=== PATIENT | male | born 1960 | race Caucasian/White ===

== ENCOUNTER 2018-03-29 14:29 | Inpatient (IN) | payer MEDICAID ==
[~2018-03-29] VITALS: Ht 162.6 cm; Wt 68.8 kg
[2018-03-29] MEDS ORDERED: normal saline 1000ML IV soln IVB ONE (15:10)
[2018-03-29 15:12] LABS: BASOPHILS # (AUTO) 0.1 X10'3 (0-0.2); BASOPHILS % (AUTO) 0.6 % (0-1); EOSINOPHILS # (AUTO) 0.1 X10'3 (0-0.9); EOSINOPHILS % (AUTO) 0.7 % (0-6); HEMATOCRIT 44.1 % (42.0-52.0); HEMOGLOBIN 15.1 g/dl (14.0-17.9); LYMPHOCYTES # (AUTO) 1.5 X10'3 (1.1-4.8); LYMPHOCYTES % (AUTO) 10.1 % (21-51); MEAN CORPUSCULAR HEMOGLOBIN 31.4 PG (27.0-31.0); MEAN CORPUSCULAR HGB CONC 34.4 % (33.0-36.5); MEAN CORPUSCULAR VOLUME 91.4 FL (78-98); MEAN PLATELET VOLUME 7.8 FL (7.4-10.4); MONOCYTES % (AUTO) 6.7 % (2-12); NEUTROPHILS # (AUTO) 11.9 X10'3 (1.8-7.7); NEUTROPHILS % (AUTO) 81.9 % (42-75); PLATELET COUNT 171 X10'3 (140-440); RED BLOOD COUNT 4.82 X10'6 (4.70-6.10); RED CELL DISTRIBUTION WIDTH 14.9 % (11.5-14.5); WHITE BLOOD COUNT 14.5 X10'3 (4.5-11.0)
[2018-03-29 15:27] LABS: INR 1.2 INR; PARTIAL THROMBOPLASTIN TIME 25 SECONDS (22-32)
[2018-03-29 15:33] LABS: ALANINE AMINOTRANSFERASE 95 U/L (12-78); ALBUMIN 2.4 G/DL (3.4-5.0); ALBUMIN/GLOBULIN RATIO 0.6 (1.1-1.5); ALKALINE PHOSPHATASE 56 IU/L (46-116); ANION GAP 14 (8-16); ASPARTATE AMINO TRANSFERASE 184 U/L (10-37); BILIRUBIN,TOTAL 0.7 MG/DL (0.1-1.0); BLOOD UREA NITROGEN 52 MG/DL (7-18); BUN/CREATININE RATIO 28.6 (5.4-32.0); CALCIUM 7.8 MG/DL (8.5-10.1); CHLORIDE 118 MMOL/L (99-107); CREATININE 1.82 MG/DL (0.60-1.10); GLUCOSE 152 MG/DL (70-104); POTASSIUM 3.2 MMOL/L (3.5-5.1); SODIUM 153 MMOL/L (135-145); TOTAL CARBON DIOXIDE 21.4 MMOL/L (24-32); TOTAL PROTEIN 6.6 G/DL (6.4-8.2); eGFR 38 ML/MIN
[2018-03-29 15:46] LABS: CLARITY,URINE SLIGHTLY CLOUDY (Clear); COLOR,URINE YELLOW (Yellow); GLUCOSE, URINE NEGATIVE (Neg); KETONES,URINE NEGATIVE (Neg); LEUKOCYTE ESTERASE ,URINE NEGATIVE (Neg); NITRITES, URINE NEGATIVE (Neg); OCCULT BLOOD,URINE LARGE (Neg); PH,URINE 5.5 (4.8-8.0); PROTEIN,URINE 100 mg/dl (Neg)
[2018-03-29 15:51] LABS: UA COLLECTION TYPE FOLEY CATH
[2018-03-29 15:52] LABS: WBC,URINE 30-50 /HPF (0-4)
[2018-03-29 15:53] LABS: BACTERIA,URINE 2+ /HPF (Neg); RBC,URINE TNTC /HPF (0-2); SQUAMOUS EPITHELIAL CELL,UR FEW /LPF (FEW)
[2018-03-29 15:55] LABS: CAL OXALATE CRYSTALS 1+ /HPF (NEGATIVE)
[2018-03-29 15:57] LABS: URINE AMPHETAMINE SCREEN NEGATIVE (Neg); URINE BARBITUATE SCREEN NEGATIVE (Neg); URINE BENZODIAZEPINES SCREEN NEGATIVE (Neg); URINE CANNABINOID SCREEN NEGATIVE (Neg); URINE COCAINE SCREEN NEGATIVE (Neg); URINE METHADONE SCREEN NEGATIVE (Neg); URINE OPIATE SCREEN NEGATIVE (Neg); URINE PHENCYCLIDINE SCREEN NEGATIVE (Neg)
[2018-03-29 16:03] LABS: ETHANOL < 0.010 GM/DL (0.0-0.010)
[2018-03-29] MEDS ORDERED: CefTRIAXone 2gm/D5W 50ml 50 ML IV ONE (16:05)
[2018-03-29 16:09] LABS: CREATINE KINASE 6422 U/L (39-308)
[2018-03-29 16:26] LABS: MYOGLOBIN 10655 ng/ml (16-96)
[2018-03-29] MEDS: potassium 10mEq/100ml NS w/LIDOcaine (10mg/bag) IV SCH ×2 (16:32→17:47)
[2018-03-29] MEDS ORDERED: potassium Cl 40MEQ/NS 500ml 500 ML IV PRN ×2 (16:55)
[2018-03-29] MEDS ORDERED: magnesium hydroxide 30ml (MOM) UD suspension PO PRN (16:55)
[2018-03-29] MEDS ORDERED: magnesium 1gm/100ml D5W IVPB 50 ML IV PRN (16:55)
[2018-03-29] MEDS ORDERED: ipratropium/albuterol 3ml nebule NEB PRN (16:55)
[2018-03-29] MEDS ORDERED: ondansetron/PF 4mg/2ml inj IV PRN (16:55)
[2018-03-29] MEDS ORDERED: magnesium Cl slow-release 64mg tablet PO PRN (16:55)
[2018-03-29] MEDS ORDERED: potassium Cl 20 mEq SR tablet PO PRN (16:55)
[2018-03-29] MEDS ORDERED: haloperidol lactate 5mg/ml inj IM PRN (16:55)
[2018-03-29] MEDS ORDERED: mag hydrox/Alum hydrox/simeth 30ml oral suspension PO PRN (16:55)
[2018-03-29] MEDS ORDERED: magnesium 4gm in 100ml NS 100 ML IV PRN (16:55)
[2018-03-29] MEDS ORDERED: thiamine inj. 100 MG in normal saline 100ml IV soln 100 ML IV ONE (16:55)
[2018-03-29] MEDS ORDERED: NO HOME MEDS (17:36)
[2018-03-29] MEDS: normal saline 1000ml 1,000 ML IV SCH ×4 (18:55→22:55)
[2018-03-29 19:20] VITALS: BP 146/95
[2018-03-29 19:29] LABS: ALANINE AMINOTRANSFERASE 95 U/L (12-78); ALBUMIN 2.4 G/DL (3.4-5.0); ALBUMIN/GLOBULIN RATIO 0.6 (1.1-1.5); ALKALINE PHOSPHATASE 50 IU/L (46-116); ANION GAP 12 (8-16); ASPARTATE AMINO TRANSFERASE 223 U/L (10-37); BILIRUBIN,TOTAL 0.4 MG/DL (0.1-1.0); BLOOD UREA NITROGEN 49 MG/DL (7-18); BUN/CREATININE RATIO 27.8 (5.4-32.0); CALCIUM 8.3 MG/DL (8.5-10.1); CHLORIDE 119 MMOL/L (99-107); CREATININE 1.76 MG/DL (0.60-1.10); GLUCOSE 123 MG/DL (70-104); POTASSIUM 4.3 MMOL/L (3.5-5.1); SODIUM 154 MMOL/L (135-145); TOTAL CARBON DIOXIDE 23.1 MMOL/L (24-32); TOTAL PROTEIN 6.4 G/DL (6.4-8.2); eGFR 40 ML/MIN
[2018-03-29 19:54] LABS: MYOGLOBIN 7182 ng/ml (16-96)
[2018-03-29 20:12] LABS: CREATINE KINASE 7854 U/L (39-308)
[2018-03-29 23:55] VITALS: BP 141/94
[2018-03-30] MEDS: heparin, porcine 5000 units/ml vial SQ SCH ×4 (00:53→23:21)
[2018-03-30 02:00] LABS: TROPONIN I 0.07 NG/ML (0.0-0.05)
[2018-03-30 02:02] LABS: CREATINE KINASE 6278 U/L (39-308)
[2018-03-30 03:00] VITALS: BP 141/87
[2018-03-30] MEDS: normal saline 1000ml 1,000 ML IV SCH (03:14)
[2018-03-30 06:00] VITALS: BP 133/83
[2018-03-30 06:56] LABS: BASOPHILS % (AUTO) 0.4 % (0-1); EOSINOPHILS # (AUTO) 0.1 X10'3 (0-0.9); EOSINOPHILS % (AUTO) 1.2 % (0-6); HEMOGLOBIN 12.5 g/dl (14.0-17.9); LYMPHOCYTES # (AUTO) 1.7 X10'3 (1.1-4.8); LYMPHOCYTES % (AUTO) 13.5 % (21-51); MEAN CORPUSCULAR HEMOGLOBIN 32.1 PG (27.0-31.0); MEAN CORPUSCULAR HGB CONC 34.8 % (33.0-36.5); MEAN CORPUSCULAR VOLUME 92.3 FL (78-98); MEAN PLATELET VOLUME 7.8 FL (7.4-10.4); MONOCYTES # (AUTO) 0.8 X10'3 (0-0.9); MONOCYTES % (AUTO) 6.5 % (2-12); NEUTROPHILS # (AUTO) 9.7 X10'3 (1.8-7.7); NEUTROPHILS % (AUTO) 78.4 % (42-75); PLATELET COUNT 131 X10'3 (140-440); RED CELL DISTRIBUTION WIDTH 14.4 % (11.5-14.5); WHITE BLOOD COUNT 12.4 X10'3 (4.5-11.0)
[2018-03-30 07:33] LABS: ALANINE AMINOTRANSFERASE 82 U/L (12-78); ALBUMIN/GLOBULIN RATIO 0.6 (1.1-1.5); ALKALINE PHOSPHATASE 44 IU/L (46-116); AMYLASE 76 U/L (25-115); ANION GAP 10 (8-16); ASPARTATE AMINO TRANSFERASE 179 U/L (10-37); BILIRUBIN,TOTAL 0.4 MG/DL (0.1-1.0); BLOOD UREA NITROGEN 38 MG/DL (7-18); BUN/CREATININE RATIO 28.6 (5.4-32.0); CALCIUM 7.4 MG/DL (8.5-10.1); CHLORIDE 124 MMOL/L (99-107); CHOL/HDL RATIO 4.5 (0.00-4.99); CHOLESTEROL 104 MG/DL (0-200); CREATININE 1.33 MG/DL (0.60-1.10); GLUCOSE 94 MG/DL (70-104); HDL CHOLESTEROL 23 MG/DL (35-60); LDL CHOLESTEROL 71 MG/DL (50-100); LIPASE 460 U/L (73-393); MAGNESIUM 2.2 MG/DL (1.5-2.4); PHOSPHORUS 4.2 MG/DL (2.3-4.5); POTASSIUM 4.3 MMOL/L (3.5-5.1); TOTAL CARBON DIOXIDE 22.4 MMOL/L (24-32); TOTAL PROTEIN 5.6 G/DL (6.4-8.2); TRIGLYCERIDES 83 MG/DL (20-135); eGFR 55 ML/MIN
[2018-03-30 07:34] LABS: CREATINE KINASE 4522 U/L (39-308); SODIUM 156 MMOL/L (135-145)
[2018-03-30] MEDS: K and/or MAG REPLACEMENT MC SCH (08:00)
[2018-03-30] MEDS: CefTRIAXone/D5W-Rocephin 1gm 50 ML IV SCH (10:10)
[2018-03-30] MEDS: dextrose 5%-water 1,000 ML IV SCH ×3 (10:12→21:02)
[2018-03-30] MEDS: nicotine 21mg patch - 24 hr TD SCH (10:12)
[2018-03-30 11:00] VITALS: BP 134/82
[2018-03-30] MEDS: folic acid inj. 2 MG, thiamine inj. 100 MG, MVI, adult No.4 with vit. K 10 ML in dextro... IV SCH ×4 (11:39)
[2018-03-30 13:11] LABS: CREATINE KINASE 4720 U/L (39-308)
[2018-03-30 14:49] LABS: ALANINE AMINOTRANSFERASE 87 U/L (12-78); ALBUMIN/GLOBULIN RATIO 0.5 (1.1-1.5); ALKALINE PHOSPHATASE 50 IU/L (46-116); ANION GAP 12 (8-16); ASPARTATE AMINO TRANSFERASE 185 U/L (10-37); BILIRUBIN,TOTAL 0.4 MG/DL (0.1-1.0); BLOOD UREA NITROGEN 34 MG/DL (7-18); BUN/CREATININE RATIO 27.2 (5.4-32.0); CALCIUM 7.8 MG/DL (8.5-10.1); CHLORIDE 119 MMOL/L (99-107); CREATININE 1.25 MG/DL (0.60-1.10); GLUCOSE 178 MG/DL (70-104); POTASSIUM 3.1 MMOL/L (3.5-5.1); SODIUM 151 MMOL/L (135-145); TOTAL CARBON DIOXIDE 19.9 MMOL/L (24-32); TOTAL PROTEIN 5.8 G/DL (6.4-8.2); eGFR 59 ML/MIN
[2018-03-30 15:00] VITALS: BP 133/93
[2018-03-30] MEDS: potassium Cl 20 mEq SR tablet PO PRN ×2 (15:34→21:00)
[2018-03-30 18:52] LABS: CREATINE KINASE 4288 U/L (39-308)
[2018-03-30] MEDS: nystatin 15 GM powder TP SCH (19:52)
[2018-03-30] MEDS: lactobacillus rhamnosus 10,000 MMU CELLS/CAPSULE PO SCH (19:52)
[2018-03-30] MEDS: LORazepam 2 mg/ml vial IV PRN (21:18)
[2018-03-30 23:28] VITALS: BP 139/80
[2018-03-31 01:39] LABS: CREATINE KINASE 3361 U/L (39-308)
[2018-03-31 02:30] VITALS: BP 137/90
[2018-03-31] MEDS: LORazepam 2 mg/ml vial IV PRN ×4 (03:01→15:53)
[2018-03-31 06:00] VITALS: BP 119/84
[2018-03-31 06:26] LABS: BASOPHILS % (AUTO) 0.3 % (0-1); EOSINOPHILS # (AUTO) 0.1 X10'3 (0-0.9); EOSINOPHILS % (AUTO) 1.8 % (0-6); HEMATOCRIT 31.3 % (42.0-52.0); HEMOGLOBIN 10.6 g/dl (14.0-17.9); LYMPHOCYTES # (AUTO) 1.4 X10'3 (1.1-4.8); LYMPHOCYTES % (AUTO) 20.6 % (21-51); MEAN CORPUSCULAR HEMOGLOBIN 31.2 PG (27.0-31.0); MEAN CORPUSCULAR HGB CONC 33.9 % (33.0-36.5); MEAN PLATELET VOLUME 7.9 FL (7.4-10.4); MONOCYTES # (AUTO) 0.4 X10'3 (0-0.9); MONOCYTES % (AUTO) 6.5 % (2-12); NEUTROPHILS # (AUTO) 4.7 X10'3 (1.8-7.7); NEUTROPHILS % (AUTO) 70.8 % (42-75); PLATELET COUNT 118 X10'3 (140-440); RED BLOOD COUNT 3.41 X10'6 (4.70-6.10); RED CELL DISTRIBUTION WIDTH 14.7 % (11.5-14.5); WHITE BLOOD COUNT 6.7 X10'3 (4.5-11.0)
[2018-03-31 06:40] LABS: ALANINE AMINOTRANSFERASE 85 U/L (12-78); ALBUMIN 1.8 G/DL (3.4-5.0); ALBUMIN/GLOBULIN RATIO 0.5 (1.1-1.5); ALKALINE PHOSPHATASE 47 IU/L (46-116); ANION GAP 7 (8-16); ASPARTATE AMINO TRANSFERASE 150 U/L (10-37); BILIRUBIN,TOTAL 0.4 MG/DL (0.1-1.0); BLOOD UREA NITROGEN 23 MG/DL (7-18); BUN/CREATININE RATIO 21.9 (5.4-32.0); CALCIUM 7.9 MG/DL (8.5-10.1); CHLORIDE 115 MMOL/L (99-107); CREATININE 1.05 MG/DL (0.60-1.10); GLUCOSE 150 MG/DL (70-104); POTASSIUM 3.7 MMOL/L (3.5-5.1); SODIUM 146 MMOL/L (135-145); TOTAL CARBON DIOXIDE 24.3 MMOL/L (24-32); TOTAL PROTEIN 5.5 G/DL (6.4-8.2); eGFR 72 ML/MIN
[2018-03-31 06:53] LABS: AMYLASE 35 U/L (25-115); LIPASE 279 U/L (73-393); MAGNESIUM 1.8 MG/DL (1.5-2.4); PHOSPHORUS 2.5 MG/DL (2.3-4.5)
[2018-03-31 07:00] LABS: CREATINE KINASE 3194 U/L (39-308)
[2018-03-31] MEDS: dextrose 5%-water 1,000 ML IV SCH ×2 (07:10→14:11)
[2018-03-31] MEDS: heparin, porcine 5000 units/ml vial SQ SCH ×2 (07:24→15:09)
[2018-03-31] MEDS: CefTRIAXone/D5W-Rocephin 1gm 50 ML IV SCH (07:24)
[2018-03-31] MEDS: nicotine 21mg patch - 24 hr TD SCH (07:25)
[2018-03-31] MEDS: lactobacillus rhamnosus 10,000 MMU CELLS/CAPSULE PO SCH ×2 (07:30→20:40)
[2018-03-31] MEDS: K and/or MAG REPLACEMENT MC SCH (08:00)
[2018-03-31] MEDS: folic acid inj. 2 MG, thiamine inj. 100 MG, MVI, adult No.4 with vit. K 10 ML in dextro... IV SCH ×4 (09:06)
[2018-03-31] MEDS: nystatin 15 GM powder TP SCH ×2 (09:08→20:40)
[2018-03-31 11:00] VITALS: BP 112/72
[2018-03-31 13:05] LABS: CREATINE KINASE 2919 U/L (39-308)
[2018-03-31 17:52] VITALS: BP 126/86
[2018-03-31 18:50] LABS: CREATINE KINASE 2512 U/L (39-308)
[2018-03-31 19:00] VITALS: BP 105/72
[2018-03-31] MEDS: LORazepam 1 MG tablet PO PRN ×2 (19:34→20:40)
[2018-03-31 23:00] VITALS: BP 144/89
[2018-04-01] MEDS: heparin, porcine 5000 units/ml vial SQ SCH ×2 (00:31→07:01)
[2018-04-01] MEDS: haloperidol 5mg tablet PO PRN (02:30)
[2018-04-01] MEDS: dextrose 5%-water 1,000 ML IV SCH ×3 (02:31→20:02)
[2018-04-01 03:00] VITALS: BP 126/78
[2018-04-01 03:04] LABS: CREATINE KINASE 2095 U/L (39-308)
[2018-04-01 06:00] VITALS: BP 147/90
[2018-04-01] MEDS: CefTRIAXone/D5W-Rocephin 1gm 50 ML IV SCH (07:01)
[2018-04-01] MEDS: nicotine 21mg patch - 24 hr TD SCH (07:02)
[2018-04-01] MEDS: nystatin 15 GM powder TP SCH ×2 (07:08→20:02)
[2018-04-01 07:16] LABS: ALANINE AMINOTRANSFERASE 94 U/L (12-78); ALBUMIN 1.8 G/DL (3.4-5.0); ALBUMIN/GLOBULIN RATIO 0.5 (1.1-1.5); ALKALINE PHOSPHATASE 60 IU/L (46-116); AMYLASE 29 U/L (25-115); ANION GAP 8 (8-16); ASPARTATE AMINO TRANSFERASE 138 U/L (10-37); BILIRUBIN,TOTAL 0.5 MG/DL (0.1-1.0); BLOOD UREA NITROGEN 12 MG/DL (7-18); BUN/CREATININE RATIO 13.2 (5.4-32.0); CALCIUM 7.7 MG/DL (8.5-10.1); CHLORIDE 109 MMOL/L (99-107); CREATININE 0.91 MG/DL (0.60-1.10); GLUCOSE 130 MG/DL (70-104); LIPASE 223 U/L (73-393); MAGNESIUM 1.6 MG/DL (1.5-2.4); PHOSPHORUS 2.8 MG/DL (2.3-4.5); POTASSIUM 3.4 MMOL/L (3.5-5.1); SODIUM 141 MMOL/L (135-145); TOTAL CARBON DIOXIDE 23.7 MMOL/L (24-32); TOTAL PROTEIN 5.4 G/DL (6.4-8.2); eGFR 85 ML/MIN
[2018-04-01 07:24] LABS: CREATINE KINASE 1654 U/L (39-308)
[2018-04-01] MEDS: K and/or MAG REPLACEMENT MC SCH (08:00)
[2018-04-01] MEDS: LORazepam 1 MG tablet PO PRN (08:02)
[2018-04-01] MEDS: lactobacillus rhamnosus 10,000 MMU CELLS/CAPSULE PO SCH ×2 (08:02→20:02)
[2018-04-01] MEDS: folic acid inj. 2 MG, thiamine inj. 100 MG, MVI, adult No.4 with vit. K 10 ML in dextro... IV SCH ×4 (08:02)
[2018-04-01] MEDS: potassium Cl 20 mEq SR tablet PO PRN ×3 (08:02→23:27)
[2018-04-01 08:15] LABS: BASOPHILS % (AUTO) 0.3 % (0-1); EOSINOPHILS # (AUTO) 0.1 X10'3 (0-0.9); EOSINOPHILS % (AUTO) 1.5 % (0-6); HEMATOCRIT 30.7 % (42.0-52.0); HEMOGLOBIN 10.7 g/dl (14.0-17.9); LYMPHOCYTES # (AUTO) 1.2 X10'3 (1.1-4.8); LYMPHOCYTES % (AUTO) 19.2 % (21-51); MEAN CORPUSCULAR HEMOGLOBIN 31.7 PG (27.0-31.0); MEAN CORPUSCULAR HGB CONC 34.8 % (33.0-36.5); MEAN CORPUSCULAR VOLUME 91.1 FL (78-98); MEAN PLATELET VOLUME 8.2 FL (7.4-10.4); MONOCYTES # (AUTO) 0.3 X10'3 (0-0.9); MONOCYTES % (AUTO) 5.2 % (2-12); NEUTROPHILS # (AUTO) 4.8 X10'3 (1.8-7.7); NEUTROPHILS % (AUTO) 73.8 % (42-75); PLATELET COUNT 120 X10'3 (140-440); RED BLOOD COUNT 3.37 X10'6 (4.70-6.10); RED CELL DISTRIBUTION WIDTH 14.6 % (11.5-14.5); WHITE BLOOD COUNT 6.4 X10'3 (4.5-11.0)
[2018-04-01] MEDS ORDERED: LORazepam 2 mg/ml vial IV PRN (10:45)
[2018-04-01 11:00] VITALS: BP 131/78
[2018-04-01 13:40] LABS: CREATINE KINASE 1413 U/L (39-308)
[2018-04-01 15:00] VITALS: BP 125/75
[2018-04-01] MEDS ORDERED: potassium Cl 40MEQ/NS 500ml 500 ML IV PRN ×2 (18:35)
[2018-04-01 19:00] VITALS: BP 120/73
[2018-04-01 23:00] VITALS: BP 136/87
[2018-04-02] MEDS: HYDROcodone/acetaminophen 5mg/325mg tablet PO PRN (01:21)
[2018-04-02 03:00] VITALS: BP 138/56
[2018-04-02 06:30] VITALS: BP 140/87
[2018-04-02 06:41] LABS: ALANINE AMINOTRANSFERASE 112 U/L (12-78); ALBUMIN/GLOBULIN RATIO 0.5 (1.1-1.5); ALKALINE PHOSPHATASE 79 IU/L (46-116); AMYLASE 37 U/L (25-115); ANION GAP 10 (8-16); ASPARTATE AMINO TRANSFERASE 127 U/L (10-37); BILIRUBIN,TOTAL 0.6 MG/DL (0.1-1.0); BLOOD UREA NITROGEN 7 MG/DL (7-18); BUN/CREATININE RATIO 8.5 (5.4-32.0); CALCIUM 8.2 MG/DL (8.5-10.1); CHLORIDE 107 MMOL/L (99-107); CREATINE KINASE 962 U/L (39-308); CREATININE 0.82 MG/DL (0.60-1.10); GLUCOSE 121 MG/DL (70-104); LIPASE 276 U/L (73-393); MAGNESIUM 1.5 MG/DL (1.5-2.4); PHOSPHORUS 2.2 MG/DL (2.3-4.5); POTASSIUM 3.5 MMOL/L (3.5-5.1); SODIUM 141 MMOL/L (135-145); TOTAL CARBON DIOXIDE 23.6 MMOL/L (24-32); TOTAL PROTEIN 6.1 G/DL (6.4-8.2); eGFR > 90 ML/MIN
[2018-04-02 07:23] LABS: BASOPHILS % (AUTO) 0.6 % (0-1); EOSINOPHILS % (AUTO) 0.6 % (0-6); HEMATOCRIT 36.3 % (42.0-52.0); HEMOGLOBIN 12.4 g/dl (14.0-17.9); LYMPHOCYTES # (AUTO) 1.1 X10'3 (1.1-4.8); LYMPHOCYTES % (AUTO) 13.2 % (21-51); MEAN CORPUSCULAR HEMOGLOBIN 31.6 PG (27.0-31.0); MEAN CORPUSCULAR HGB CONC 34.3 % (33.0-36.5); MEAN CORPUSCULAR VOLUME 92.2 FL (78-98); MEAN PLATELET VOLUME 8.2 FL (7.4-10.4); MONOCYTES # (AUTO) 0.3 X10'3 (0-0.9); NEUTROPHILS % (AUTO) 81.6 % (42-75); PLATELET COUNT 143 X10'3 (140-440); RED BLOOD COUNT 3.94 X10'6 (4.70-6.10); RED CELL DISTRIBUTION WIDTH 13.9 % (11.5-14.5); WHITE BLOOD COUNT 8.5 X10'3 (4.5-11.0)
[2018-04-02] MEDS: K and/or MAG REPLACEMENT MC SCH (08:00)
[2018-04-02] MEDS: lactobacillus rhamnosus 10,000 MMU CELLS/CAPSULE PO SCH ×2 (08:00→19:33)
[2018-04-02] MEDS: nicotine 21mg patch - 24 hr TD SCH (08:01)
[2018-04-02] MEDS: enoxaparin 40mg/0.4ml syringe SUBCUT SCH (08:02)
[2018-04-02] MEDS: nystatin 15 GM powder TP SCH ×2 (08:04→19:33)
[2018-04-02] MEDS: folic acid inj. 2 MG, thiamine inj. 100 MG, MVI, adult No.4 with vit. K 10 ML in dextro... IV SCH ×4 (08:06)
[2018-04-02] MEDS: LORazepam 1 MG tablet PO PRN (10:06)
[2018-04-02] MEDS: dextrose 5%-water 1,000 ML IV SCH ×2 (10:06→19:10)
[2018-04-02 11:00] VITALS: BP 105/69
[2018-04-02 15:00] VITALS: BP 124/82
[2018-04-02] MEDS ORDERED: LORazepam 1 MG tablet PO PRN (16:55)
[2018-04-02 19:00] VITALS: BP 121/76
[2018-04-02 23:30] VITALS: BP 118/79
[2018-04-03] MEDS: dextrose 5%-water 1,000 ML IV SCH ×2 (02:18→16:32)
[2018-04-03 06:22] LABS: ALANINE AMINOTRANSFERASE 96 U/L (12-78); ALBUMIN/GLOBULIN RATIO 0.5 (1.1-1.5); ALKALINE PHOSPHATASE 69 IU/L (46-116); AMYLASE 35 U/L (25-115); ANION GAP 10 (8-16); ASPARTATE AMINO TRANSFERASE 85 U/L (10-37); BILIRUBIN,TOTAL 0.7 MG/DL (0.1-1.0); BLOOD UREA NITROGEN 8 MG/DL (7-18); BUN/CREATININE RATIO 11.1 (5.4-32.0); CALCIUM 7.9 MG/DL (8.5-10.1); CHLORIDE 105 MMOL/L (99-107); CREATININE 0.72 MG/DL (0.60-1.10); GLUCOSE 120 MG/DL (70-104); LIPASE 250 U/L (73-393); MAGNESIUM 1.4 MG/DL (1.5-2.4); PHOSPHORUS 2.7 MG/DL (2.3-4.5); SODIUM 141 MMOL/L (135-145); TOTAL CARBON DIOXIDE 26.2 MMOL/L (24-32); TOTAL PROTEIN 5.8 G/DL (6.4-8.2); eGFR > 90 ML/MIN
[2018-04-03 06:24] LABS: POTASSIUM 2.9 MMOL/L (3.5-5.1)
[2018-04-03 06:29] LABS: BASOPHILS % (AUTO) 0.4 % (0-1); EOSINOPHILS # (AUTO) 0.1 X10'3 (0-0.9); EOSINOPHILS % (AUTO) 0.6 % (0-6); HEMATOCRIT 34.9 % (42.0-52.0); HEMOGLOBIN 12.1 g/dl (14.0-17.9); LYMPHOCYTES # (AUTO) 1.3 X10'3 (1.1-4.8); LYMPHOCYTES % (AUTO) 11.2 % (21-51); MEAN CORPUSCULAR HEMOGLOBIN 31.5 PG (27.0-31.0); MEAN CORPUSCULAR HGB CONC 34.6 % (33.0-36.5); MEAN CORPUSCULAR VOLUME 91.1 FL (78-98); MEAN PLATELET VOLUME 9.1 FL (7.4-10.4); MONOCYTES # (AUTO) 0.6 X10'3 (0-0.9); MONOCYTES % (AUTO) 5.1 % (2-12); NEUTROPHILS # (AUTO) 9.3 X10'3 (1.8-7.7); NEUTROPHILS % (AUTO) 82.7 % (42-75); PLATELET COUNT 157 X10'3 (140-440); RED BLOOD COUNT 3.83 X10'6 (4.70-6.10); RED CELL DISTRIBUTION WIDTH 14.4 % (11.5-14.5); WHITE BLOOD COUNT 11.3 X10'3 (4.5-11.0)
[2018-04-03 07:25] VITALS: BP 136/84
[2018-04-03] MEDS: K and/or MAG REPLACEMENT MC SCH (08:00)
[2018-04-03] MEDS: potassium Cl 20 mEq SR tablet PO PRN ×3 (08:34→17:36)
[2018-04-03] MEDS: lactobacillus rhamnosus 10,000 MMU CELLS/CAPSULE PO SCH ×2 (08:34→20:31)
[2018-04-03] MEDS: folic acid inj. 2 MG, thiamine inj. 100 MG, MVI, adult No.4 with vit. K 10 ML in dextro... IV SCH ×4 (08:34)
[2018-04-03] MEDS: enoxaparin 40mg/0.4ml syringe SUBCUT SCH (08:35)
[2018-04-03] MEDS: nystatin 15 GM powder TP SCH ×2 (08:36→20:36)
[2018-04-03] MEDS: nicotine 21mg patch - 24 hr TD SCH (08:36)
[2018-04-03] MEDS ORDERED: LIDOcaine 2% 10ml TOPICAL JELLY (Urojet) MM ONE (10:55)
[2018-04-03 11:30] VITALS: BP 126/74
[2018-04-03] MEDS ORDERED: magnesium 4gm in 100ml NS 100 ML IV PRN (12:30)
[2018-04-03] MEDS: magnesium Cl slow-release 64mg tablet PO PRN (17:04)
[2018-04-03 20:00] VITALS: BP 114/82
[2018-04-04] VITALS: BP 119/67
[2018-04-04] MEDS: dextrose 5%-water 1,000 ML IV SCH ×2 (03:03→20:28)
[2018-04-04] MEDS: magnesium Cl slow-release 64mg tablet PO PRN (04:45)
[2018-04-04 05:46] LABS: BASOPHILS % (AUTO) 0.5 % (0-1); EOSINOPHILS % (AUTO) 0.4 % (0-6); HEMATOCRIT 31.3 % (42.0-52.0); HEMOGLOBIN 10.6 g/dl (14.0-17.9); LYMPHOCYTES # (AUTO) 1.1 X10'3 (1.1-4.8); LYMPHOCYTES % (AUTO) 11.3 % (21-51); MEAN CORPUSCULAR HEMOGLOBIN 31.2 PG (27.0-31.0); MEAN CORPUSCULAR HGB CONC 33.9 % (33.0-36.5); MEAN CORPUSCULAR VOLUME 91.9 FL (78-98); MEAN PLATELET VOLUME 8.5 FL (7.4-10.4); MONOCYTES # (AUTO) 0.5 X10'3 (0-0.9); MONOCYTES % (AUTO) 5.6 % (2-12); NEUTROPHILS # (AUTO) 7.9 X10'3 (1.8-7.7); NEUTROPHILS % (AUTO) 82.2 % (42-75); PLATELET COUNT 159 X10'3 (140-440); RED BLOOD COUNT 3.41 X10'6 (4.70-6.10); RED CELL DISTRIBUTION WIDTH 15.1 % (11.5-14.5); WHITE BLOOD COUNT 9.6 X10'3 (4.5-11.0)
[2018-04-04 05:59] LABS: ALANINE AMINOTRANSFERASE 80 U/L (12-78); ALBUMIN 1.9 G/DL (3.4-5.0); ALBUMIN/GLOBULIN RATIO 0.5 (1.1-1.5); ALKALINE PHOSPHATASE 61 IU/L (46-116); ANION GAP 8 (8-16); ASPARTATE AMINO TRANSFERASE 53 U/L (10-37); BILIRUBIN,TOTAL 0.8 MG/DL (0.1-1.0); BLOOD UREA NITROGEN 8 MG/DL (7-18); BUN/CREATININE RATIO 10.8 (5.4-32.0); CHLORIDE 105 MMOL/L (99-107); CREATINE KINASE 236 U/L (39-308); CREATININE 0.74 MG/DL (0.60-1.10); GLUCOSE 115 MG/DL (70-104); MAGNESIUM 1.3 MG/DL (1.5-2.4); POTASSIUM 3.4 MMOL/L (3.5-5.1); SODIUM 138 MMOL/L (135-145); TOTAL CARBON DIOXIDE 24.6 MMOL/L (24-32); TOTAL PROTEIN 5.7 G/DL (6.4-8.2); eGFR > 90 ML/MIN
[2018-04-04 07:45] VITALS: BP 139/88
[2018-04-04] MEDS ORDERED: folic acid 1mg tablet PO SCH (08:00)
[2018-04-04] MEDS: K and/or MAG REPLACEMENT MC SCH (08:00)
[2018-04-04] MEDS: multivitamins, therapeutics tablet PO SCH (09:20)
[2018-04-04] MEDS: lactobacillus rhamnosus 10,000 MMU CELLS/CAPSULE PO SCH ×2 (09:20→19:52)
[2018-04-04] MEDS: folic acid 1mg tablet PO SCH (09:20)
[2018-04-04] MEDS: thiamine 100mg tablet PO SCH (09:21)
[2018-04-04] MEDS: enoxaparin 40mg/0.4ml syringe SUBCUT SCH (09:21)
[2018-04-04] MEDS: potassium Cl 20 mEq SR tablet PO PRN ×2 (09:23→13:53)
[2018-04-04] MEDS: nicotine 21mg patch - 24 hr TD SCH (09:24)
[2018-04-04] MEDS: nystatin 15 GM powder TP SCH ×2 (09:34→19:53)
[2018-04-04] MEDS: tamsulosin 0.4mg capsule PO SCH ×2 (10:39→20:29)
[2018-04-04 12:06] VITALS: BP 104/70
[2018-04-04] MEDS ORDERED: LIDOcaine 2% 10ml TOPICAL JELLY (Urojet) MM ONE (12:40)
[2018-04-04] MEDS: magnesium 1gm/100ml D5W IVPB 100 ML IV PRN ×2 (13:04→15:45)
[2018-04-04] MEDS ORDERED: potassium Cl 20 mEq SR tablet PO STA (19:45)
[2018-04-04] MEDS: acetaminophen 325mg tablet PO PRN (19:53)
[2018-04-04 20:00] VITALS: BP 110/74
[2018-04-05] VITALS: BP 125/82
[2018-04-05] MEDS: HYDROcodone/acetaminophen 5mg/325mg tablet PO PRN (01:19)
[2018-04-05 06:11] LABS: MAGNESIUM 2.1 MG/DL (1.5-2.4); POTASSIUM 3.5 MMOL/L (3.5-5.1)
[2018-04-05 06:53] VITALS: BP 127/89
[2018-04-05] MEDS: K and/or MAG REPLACEMENT MC SCH (08:50)
[2018-04-05] MEDS: folic acid 1mg tablet PO SCH (09:02)
[2018-04-05] MEDS: thiamine 100mg tablet PO SCH (09:02)
[2018-04-05] MEDS: lactobacillus rhamnosus 10,000 MMU CELLS/CAPSULE PO SCH ×2 (09:02→19:31)
[2018-04-05] MEDS: multivitamins, therapeutics tablet PO SCH (09:02)
[2018-04-05] MEDS: nystatin 15 GM powder TP SCH ×2 (09:03→22:17)
[2018-04-05] MEDS: nicotine 21mg patch - 24 hr TD SCH (09:03)
[2018-04-05] MEDS: enoxaparin 40mg/0.4ml syringe SUBCUT SCH (09:03)
[2018-04-05 12:26] VITALS: BP 106/74
[2018-04-05] MEDS: dextrose 5%-water 1,000 ML IV SCH (13:46)
[2018-04-05 19:00] VITALS: BP 133/86
[2018-04-05] MEDS: LORazepam 2 mg/ml vial IV PRN (19:31)
[2018-04-05] MEDS: tamsulosin 0.4mg capsule PO SCH (22:17)
[2018-04-06 02:30] VITALS: BP 128/77
[2018-04-06] MEDS: LORazepam 2 mg/ml vial IV PRN (05:34)
[2018-04-06] MEDS: dextrose 5%-water 1,000 ML IV SCH ×2 (05:42→22:00)
[2018-04-06 07:33] VITALS: BP 123/72
[2018-04-06] MEDS: nicotine 21mg patch - 24 hr TD SCH (07:53)
[2018-04-06] MEDS: enoxaparin 40mg/0.4ml syringe SUBCUT SCH (07:53)
[2018-04-06] MEDS: thiamine 100mg tablet PO SCH (08:00)
[2018-04-06] MEDS: lactobacillus rhamnosus 10,000 MMU CELLS/CAPSULE PO SCH ×2 (08:00→19:38)
[2018-04-06] MEDS: K and/or MAG REPLACEMENT MC SCH (08:00)
[2018-04-06] MEDS: folic acid 1mg tablet PO SCH (08:00)
[2018-04-06] MEDS: multivitamins, therapeutics tablet PO SCH (08:00)
[2018-04-06] MEDS: nystatin 15 GM powder TP SCH ×2 (08:05→19:39)
[2018-04-06 08:34] LABS: CLARITY,URINE CLOUDY (Clear); COLOR,URINE YELLOW (Yellow); GLUCOSE, URINE NEGATIVE (Neg); KETONES,URINE NEGATIVE (Neg); LEUKOCYTE ESTERASE ,URINE LARGE (Neg); NITRITES, URINE NEGATIVE (Neg); OCCULT BLOOD,URINE LARGE (Neg); PROTEIN,URINE NEGATIVE (Neg); UROBILINOGEN,URINE 0.2 E.U/dL (0.2-1.0)
[2018-04-06 08:37] LABS: UA COLLECTION TYPE FOLEY CATH
[2018-04-06 08:42] LABS: WBC,URINE 50-100 /HPF (0-4)
[2018-04-06 08:43] LABS: BACTERIA,URINE FEW /HPF (Neg); SQUAMOUS EPITHELIAL CELL,UR FEW /LPF (FEW)
[2018-04-06 08:44] LABS: MUCUS STRANDS FEW /LPF (Neg); TRANSITIONAL EPI CELLS,URINE FEW /HPF; WBC CLUMPS,URINE MANY /HPF (NEGATIVE)
[2018-04-06 08:46] LABS: YEAST FEW /HPF (NEGATIVE)
[2018-04-06 11:11] LABS: BASOPHILS # (AUTO) 0.1 X10'3 (0-0.2); BASOPHILS % (AUTO) 1.1 % (0-1); EOSINOPHILS # (AUTO) 0.1 X10'3 (0-0.9); EOSINOPHILS % (AUTO) 1.8 % (0-6); HEMATOCRIT 28.9 % (42.0-52.0); LYMPHOCYTES # (AUTO) 1.5 X10'3 (1.1-4.8); LYMPHOCYTES % (AUTO) 19.8 % (21-51); MEAN CORPUSCULAR HGB CONC 34.6 % (33.0-36.5); MEAN CORPUSCULAR VOLUME 92.4 FL (78-98); MEAN PLATELET VOLUME 7.6 FL (7.4-10.4); MONOCYTES # (AUTO) 0.4 X10'3 (0-0.9); MONOCYTES % (AUTO) 5.7 % (2-12); NEUTROPHILS # (AUTO) 5.5 X10'3 (1.8-7.7); NEUTROPHILS % (AUTO) 71.6 % (42-75); PLATELET COUNT 218 X10'3 (140-440); RED BLOOD COUNT 3.12 X10'6 (4.70-6.10); RED CELL DISTRIBUTION WIDTH 15.2 % (11.5-14.5); WHITE BLOOD COUNT 7.7 X10'3 (4.5-11.0)
[2018-04-06 11:27] LABS: ALANINE AMINOTRANSFERASE 59 U/L (12-78); ALBUMIN/GLOBULIN RATIO 0.6 (1.1-1.5); ALKALINE PHOSPHATASE 54 IU/L (46-116); ANION GAP 9 (8-16); ASPARTATE AMINO TRANSFERASE 33 U/L (10-37); BILIRUBIN,TOTAL 0.6 MG/DL (0.1-1.0); BLOOD UREA NITROGEN 6 MG/DL (7-18); BUN/CREATININE RATIO 9.4 (5.4-32.0); CALCIUM 8.3 MG/DL (8.5-10.1); CHLORIDE 106 MMOL/L (99-107); CREATININE 0.64 MG/DL (0.60-1.10); GLUCOSE 103 MG/DL (70-104); POTASSIUM 3.4 MMOL/L (3.5-5.1); SODIUM 138 MMOL/L (135-145); TOTAL CARBON DIOXIDE 23.3 MMOL/L (24-32); TOTAL PROTEIN 5.6 G/DL (6.4-8.2); eGFR > 90 ML/MIN
[2018-04-06 11:39] VITALS: BP 115/75
[2018-04-06 19:00] VITALS: BP 113/74
[2018-04-06] MEDS: tamsulosin 0.4mg capsule PO SCH (19:38)
[2018-04-06 23:30] VITALS: BP 122/81
[2018-04-07] MEDS: LORazepam 2 mg/ml vial IV PRN ×2 (05:12→23:40)
[2018-04-07 07:15] VITALS: BP 134/83
[2018-04-07] MEDS: K and/or MAG REPLACEMENT MC SCH (08:00)
[2018-04-07] MEDS: enoxaparin 40mg/0.4ml syringe SUBCUT SCH (08:50)
[2018-04-07] MEDS: nystatin 15 GM powder TP SCH ×2 (08:50→20:38)
[2018-04-07] MEDS: nicotine 21mg patch - 24 hr TD SCH (08:51)
[2018-04-07 08:52] LABS: BASOPHILS % (AUTO) 0.6 % (0-1); EOSINOPHILS # (AUTO) 0.1 X10'3 (0-0.9); EOSINOPHILS % (AUTO) 1.8 % (0-6); HEMATOCRIT 28.7 % (42.0-52.0); HEMOGLOBIN 9.9 g/dl (14.0-17.9); LYMPHOCYTES # (AUTO) 1.3 X10'3 (1.1-4.8); LYMPHOCYTES % (AUTO) 17.2 % (21-51); MEAN CORPUSCULAR HEMOGLOBIN 31.6 PG (27.0-31.0); MEAN CORPUSCULAR HGB CONC 34.3 % (33.0-36.5); MEAN PLATELET VOLUME 7.9 FL (7.4-10.4); MONOCYTES # (AUTO) 0.5 X10'3 (0-0.9); MONOCYTES % (AUTO) 5.9 % (2-12); NEUTROPHILS # (AUTO) 5.8 X10'3 (1.8-7.7); NEUTROPHILS % (AUTO) 74.5 % (42-75); PLATELET COUNT 213 X10'3 (140-440); RED BLOOD COUNT 3.12 X10'6 (4.70-6.10); RED CELL DISTRIBUTION WIDTH 15.5 % (11.5-14.5); WHITE BLOOD COUNT 7.8 X10'3 (4.5-11.0)
[2018-04-07 09:10] LABS: ALANINE AMINOTRANSFERASE 50 U/L (12-78); ALBUMIN 1.9 G/DL (3.4-5.0); ALBUMIN/GLOBULIN RATIO 0.5 (1.1-1.5); ALKALINE PHOSPHATASE 53 IU/L (46-116); ANION GAP 8 (8-16); ASPARTATE AMINO TRANSFERASE 31 U/L (10-37); BILIRUBIN,TOTAL 0.4 MG/DL (0.1-1.0); BLOOD UREA NITROGEN 8 MG/DL (7-18); BUN/CREATININE RATIO 11.6 (5.4-32.0); CALCIUM 8.1 MG/DL (8.5-10.1); CHLORIDE 107 MMOL/L (99-107); CREATININE 0.69 MG/DL (0.60-1.10); GLUCOSE 106 MG/DL (70-104); POTASSIUM 3.3 MMOL/L (3.5-5.1); SODIUM 141 MMOL/L (135-145); TOTAL CARBON DIOXIDE 25.9 MMOL/L (24-32); TOTAL PROTEIN 5.7 G/DL (6.4-8.2); eGFR > 90 ML/MIN
[2018-04-07] MEDS: thiamine 100mg tablet PO SCH (10:33)
[2018-04-07] MEDS: multivitamins, therapeutics tablet PO SCH (10:33)
[2018-04-07] MEDS: lactobacillus rhamnosus 10,000 MMU CELLS/CAPSULE PO SCH ×2 (10:33→20:36)
[2018-04-07] MEDS: folic acid 1mg tablet PO SCH (10:33)
[2018-04-07] MEDS ORDERED: potassium Cl 20 mEq SR tablet PO PRN (11:40)
[2018-04-07] MEDS ORDERED: magnesium Cl slow-release 64mg tablet PO PRN (11:40)
[2018-04-07] MEDS ORDERED: potassium Cl 40MEQ/NS 500ml 500 ML IV PRN ×2 (11:40)
[2018-04-07] MEDS ORDERED: magnesium 1gm/100ml D5W IVPB 100 ML IV PRN (11:40)
[2018-04-07] MEDS ORDERED: magnesium 4gm in 100ml NS 100 ML IV PRN (11:40)
[2018-04-07 12:16] VITALS: BP 119/72
[2018-04-07] MEDS: potassium Cl 20 mEq SR tablet PO PRN ×2 (13:17→17:44)
[2018-04-07] MEDS: dextrose 5%-water 1,000 ML IV SCH (17:17)
[2018-04-07 18:00] VITALS: BP 145/85
[2018-04-07] MEDS: tamsulosin 0.4mg capsule PO SCH (20:35)
[2018-04-08] VITALS: BP 139/89
[2018-04-08 00:30] VITALS: BP 130/83
[2018-04-08] MEDS: LORazepam 2 mg/ml vial IV PRN ×2 (03:05→17:25)
[2018-04-08] MEDS: haloperidol 5mg tablet PO PRN (03:41)
[2018-04-08 05:42] LABS: BASOPHILS % (AUTO) 0.4 % (0-1); EOSINOPHILS # (AUTO) 0.2 X10'3 (0-0.9); EOSINOPHILS % (AUTO) 2.6 % (0-6); HEMATOCRIT 30.2 % (42.0-52.0); HEMOGLOBIN 10.4 g/dl (14.0-17.9); LYMPHOCYTES # (AUTO) 1.4 X10'3 (1.1-4.8); MEAN CORPUSCULAR HEMOGLOBIN 31.7 PG (27.0-31.0); MEAN CORPUSCULAR HGB CONC 34.6 % (33.0-36.5); MEAN CORPUSCULAR VOLUME 91.7 FL (78-98); MONOCYTES # (AUTO) 0.4 X10'3 (0-0.9); MONOCYTES % (AUTO) 5.9 % (2-12); NEUTROPHILS # (AUTO) 4.9 X10'3 (1.8-7.7); NEUTROPHILS % (AUTO) 71.1 % (42-75); PLATELET COUNT 233 X10'3 (140-440); RED CELL DISTRIBUTION WIDTH 14.9 % (11.5-14.5); WHITE BLOOD COUNT 6.9 X10'3 (4.5-11.0)
[2018-04-08 06:12] LABS: ALANINE AMINOTRANSFERASE 55 U/L (12-78); ALBUMIN 2.2 G/DL (3.4-5.0); ALBUMIN/GLOBULIN RATIO 0.5 (1.1-1.5); ALKALINE PHOSPHATASE 58 IU/L (46-116); ANION GAP 9 (8-16); ASPARTATE AMINO TRANSFERASE 36 U/L (10-37); BILIRUBIN,TOTAL 0.6 MG/DL (0.1-1.0); BLOOD UREA NITROGEN 8 MG/DL (7-18); BUN/CREATININE RATIO 11.4 (5.4-32.0); CALCIUM 8.8 MG/DL (8.5-10.1); CHLORIDE 106 MMOL/L (99-107); GLUCOSE 97 MG/DL (70-104); POTASSIUM 3.4 MMOL/L (3.5-5.1); SODIUM 140 MMOL/L (135-145); TOTAL CARBON DIOXIDE 25.4 MMOL/L (24-32); TOTAL PROTEIN 6.4 G/DL (6.4-8.2); eGFR > 90 ML/MIN
[2018-04-08 07:19] VITALS: BP 136/89
[2018-04-08] MEDS: enoxaparin 40mg/0.4ml syringe SUBCUT SCH (07:43)
[2018-04-08] MEDS: nystatin 15 GM powder TP SCH ×2 (07:43→20:14)
[2018-04-08] MEDS: nicotine 21mg patch - 24 hr TD SCH (07:43)
[2018-04-08] MEDS: K and/or MAG REPLACEMENT MC SCH (08:00)
[2018-04-08] MEDS: potassium Cl 20 mEq SR tablet PO PRN ×3 (09:06→17:24)
[2018-04-08] MEDS: lactobacillus rhamnosus 10,000 MMU CELLS/CAPSULE PO SCH ×2 (09:06→20:14)
[2018-04-08] MEDS: thiamine 100mg tablet PO SCH (09:06)
[2018-04-08] MEDS: folic acid 1mg tablet PO SCH (09:06)
[2018-04-08] MEDS: multivitamins, therapeutics tablet PO SCH (09:06)
[2018-04-08] MEDS: fluconazole 100mg tablet PO SCH (09:06)
[2018-04-08 11:20] VITALS: BP 137/88
[2018-04-08] MEDS: propranolol 10mg tablet PO SCH ×2 (12:51→20:14)
[2018-04-08 19:00] VITALS: BP 128/81
[2018-04-08] MEDS: tamsulosin 0.4mg capsule PO SCH (20:14)
[2018-04-08] MEDS: gabapentin 400mg capsule PO SCH (20:14)
[2018-04-08] MEDS: chlordiazePOXIDE 25mg capsule PO SCH (20:14)
[2018-04-08] MEDS ORDERED: potassium Cl 40MEQ/NS 500ml 500 ML IV PRN ×2 (22:05)
[2018-04-08] MEDS ORDERED: magnesium 4gm in 100ml NS 100 ML IV PRN (22:05)
[2018-04-08] MEDS ORDERED: potassium Cl 20 mEq SR tablet PO PRN ×2 (22:05)
[2018-04-08 23:51] VITALS: BP 130/63
[2018-04-09 08:00] VITALS: BP 114/74
[2018-04-09] MEDS: K and/or MAG REPLACEMENT MC SCH (08:00)
[2018-04-09 08:02] LABS: BASOPHILS % (AUTO) 0.6 % (0-1); EOSINOPHILS # (AUTO) 0.2 X10'3 (0-0.9); EOSINOPHILS % (AUTO) 2.6 % (0-6); HEMATOCRIT 31.7 % (42.0-52.0); HEMOGLOBIN 10.8 g/dl (14.0-17.9); LYMPHOCYTES # (AUTO) 1.7 X10'3 (1.1-4.8); LYMPHOCYTES % (AUTO) 21.7 % (21-51); MEAN CORPUSCULAR HEMOGLOBIN 31.4 PG (27.0-31.0); MEAN CORPUSCULAR HGB CONC 34.2 % (33.0-36.5); MEAN CORPUSCULAR VOLUME 91.7 FL (78-98); MEAN PLATELET VOLUME 8.1 FL (7.4-10.4); MONOCYTES # (AUTO) 0.5 X10'3 (0-0.9); MONOCYTES % (AUTO) 6.3 % (2-12); NEUTROPHILS # (AUTO) 5.5 X10'3 (1.8-7.7); NEUTROPHILS % (AUTO) 68.8 % (42-75); PLATELET COUNT 258 X10'3 (140-440); RED BLOOD COUNT 3.46 X10'6 (4.70-6.10); RED CELL DISTRIBUTION WIDTH 14.7 % (11.5-14.5)
[2018-04-09 08:30] LABS: ALANINE AMINOTRANSFERASE 52 U/L (12-78); ALBUMIN 2.1 G/DL (3.4-5.0); ALBUMIN/GLOBULIN RATIO 0.5 (1.1-1.5); ALKALINE PHOSPHATASE 55 IU/L (46-116); ANION GAP 9 (8-16); ASPARTATE AMINO TRANSFERASE 34 U/L (10-37); BILIRUBIN,TOTAL 0.5 MG/DL (0.1-1.0); BLOOD UREA NITROGEN 9 MG/DL (7-18); BUN/CREATININE RATIO 11.4 (5.4-32.0); CHLORIDE 106 MMOL/L (99-107); CREATININE 0.79 MG/DL (0.60-1.10); GLUCOSE 115 MG/DL (70-104); MAGNESIUM 1.6 MG/DL (1.5-2.4); POTASSIUM 3.7 MMOL/L (3.5-5.1); SODIUM 141 MMOL/L (135-145); TOTAL CARBON DIOXIDE 25.7 MMOL/L (24-32); TOTAL PROTEIN 6.3 G/DL (6.4-8.2); eGFR > 90 ML/MIN
[2018-04-09] MEDS: propranolol 10mg tablet PO SCH ×3 (08:32→20:08)
[2018-04-09] MEDS: multivitamins, therapeutics tablet PO SCH (08:32)
[2018-04-09] MEDS: thiamine 100mg tablet PO SCH (08:32)
[2018-04-09] MEDS: enoxaparin 40mg/0.4ml syringe SUBCUT SCH (08:33)
[2018-04-09] MEDS: folic acid 1mg tablet PO SCH (08:33)
[2018-04-09] MEDS: nicotine 21mg patch - 24 hr TD SCH (08:33)
[2018-04-09] MEDS: lactobacillus rhamnosus 10,000 MMU CELLS/CAPSULE PO SCH ×2 (08:33→20:08)
[2018-04-09] MEDS: nystatin 15 GM powder TP SCH ×2 (08:33→20:07)
[2018-04-09] MEDS: fluconazole 100mg tablet PO SCH (08:40)
[2018-04-09 12:00] VITALS: BP 108/75
[2018-04-09 18:45] VITALS: BP 107/67
[2018-04-09] MEDS: chlordiazePOXIDE 25mg capsule PO SCH (20:07)
[2018-04-09] MEDS: tamsulosin 0.4mg capsule PO SCH (20:08)
[2018-04-09] MEDS: gabapentin 400mg capsule PO SCH (20:08)
[2018-04-10] VITALS: BP 113/70
[2018-04-10 07:00] LABS: BASOPHILS # (AUTO) 0.1 X10'3 (0-0.2); BASOPHILS % (AUTO) 0.9 % (0-1); EOSINOPHILS # (AUTO) 0.2 X10'3 (0-0.9); EOSINOPHILS % (AUTO) 2.3 % (0-6); HEMATOCRIT 29.6 % (42.0-52.0); HEMOGLOBIN 10.1 g/dl (14.0-17.9); LYMPHOCYTES # (AUTO) 1.8 X10'3 (1.1-4.8); LYMPHOCYTES % (AUTO) 21.8 % (21-51); MEAN CORPUSCULAR HEMOGLOBIN 31.5 PG (27.0-31.0); MEAN CORPUSCULAR HGB CONC 34.3 % (33.0-36.5); MEAN CORPUSCULAR VOLUME 91.9 FL (78-98); MEAN PLATELET VOLUME 7.3 FL (7.4-10.4); MONOCYTES # (AUTO) 0.5 X10'3 (0-0.9); NEUTROPHILS # (AUTO) 5.5 X10'3 (1.8-7.7); PLATELET COUNT 273 X10'3 (140-440); RED BLOOD COUNT 3.22 X10'6 (4.70-6.10); RED CELL DISTRIBUTION WIDTH 15.1 % (11.5-14.5)
[2018-04-10 07:16] LABS: ALANINE AMINOTRANSFERASE 46 U/L (12-78); ALBUMIN 2.2 G/DL (3.4-5.0); ALBUMIN/GLOBULIN RATIO 0.5 (1.1-1.5); ALKALINE PHOSPHATASE 53 IU/L (46-116); ANION GAP 6 (8-16); ASPARTATE AMINO TRANSFERASE 32 U/L (10-37); BILIRUBIN,TOTAL 0.4 MG/DL (0.1-1.0); BLOOD UREA NITROGEN 11 MG/DL (7-18); BUN/CREATININE RATIO 12.5 (5.4-32.0); CHLORIDE 107 MMOL/L (99-107); CREATININE 0.88 MG/DL (0.60-1.10); GLUCOSE 143 MG/DL (70-104); MAGNESIUM 1.7 MG/DL (1.5-2.4); POTASSIUM 3.7 MMOL/L (3.5-5.1); SODIUM 140 MMOL/L (135-145); TOTAL CARBON DIOXIDE 26.7 MMOL/L (24-32); TOTAL PROTEIN 6.5 G/DL (6.4-8.2); eGFR 89 ML/MIN
[2018-04-10 07:19] VITALS: BP 114/79
[2018-04-10] MEDS: K and/or MAG REPLACEMENT MC SCH (08:00)
[2018-04-10] MEDS: lactobacillus rhamnosus 10,000 MMU CELLS/CAPSULE PO SCH ×2 (09:58→20:08)
[2018-04-10] MEDS: enoxaparin 40mg/0.4ml syringe SUBCUT SCH (09:58)
[2018-04-10] MEDS: multivitamins, therapeutics tablet PO SCH (09:58)
[2018-04-10] MEDS: folic acid 1mg tablet PO SCH (09:58)
[2018-04-10] MEDS: thiamine 100mg tablet PO SCH (09:58)
[2018-04-10] MEDS: nystatin 15 GM powder TP SCH ×2 (09:59→20:08)
[2018-04-10] MEDS: propranolol 10mg tablet PO SCH ×3 (09:59→20:08)
[2018-04-10] MEDS: nicotine 21mg patch - 24 hr TD SCH (09:59)
[2018-04-10] MEDS: fluconazole 100mg tablet PO SCH (09:59)
[2018-04-10 11:59] VITALS: BP 133/84
[2018-04-10 19:40] VITALS: BP 123/72
[2018-04-10] MEDS: tamsulosin 0.4mg capsule PO SCH (20:08)
[2018-04-10] MEDS: gabapentin 400mg capsule PO SCH (20:08)
[2018-04-10] MEDS: chlordiazePOXIDE 25mg capsule PO SCH (20:08)
[2018-04-10 23:59] VITALS: BP 127/77
[2018-04-11 06:17] LABS: MAGNESIUM 1.6 MG/DL (1.5-2.4); POTASSIUM 3.7 MMOL/L (3.5-5.1)
[2018-04-11 07:28] VITALS: BP 153/97
[2018-04-11] MEDS: K and/or MAG REPLACEMENT MC SCH (08:00)
[2018-04-11] MEDS: lactobacillus rhamnosus 10,000 MMU CELLS/CAPSULE PO SCH ×2 (08:37→20:55)
[2018-04-11] MEDS: propranolol 10mg tablet PO SCH ×3 (08:37→20:55)
[2018-04-11] MEDS: multivitamins, therapeutics tablet PO SCH (08:37)
[2018-04-11] MEDS: folic acid 1mg tablet PO SCH (08:37)
[2018-04-11] MEDS: thiamine 100mg tablet PO SCH (08:37)
[2018-04-11] MEDS: fluconazole 100mg tablet PO SCH (08:37)
[2018-04-11] MEDS: nicotine 21mg patch - 24 hr TD SCH (08:37)
[2018-04-11] MEDS: enoxaparin 40mg/0.4ml syringe SUBCUT SCH (08:37)
[2018-04-11] MEDS: nystatin 15 GM powder TP SCH ×2 (08:38→20:57)
[2018-04-11 11:45] VITALS: BP 128/77
[2018-04-11 19:37] VITALS: BP 107/68
[2018-04-11] MEDS: tamsulosin 0.4mg capsule PO SCH (20:55)
[2018-04-11] MEDS: chlordiazePOXIDE 25mg capsule PO SCH (20:56)
[2018-04-11] MEDS: gabapentin 400mg capsule PO SCH (20:56)
[2018-04-12] VITALS: BP 111/69
[2018-04-12 06:14] LABS: MAGNESIUM 1.6 MG/DL (1.5-2.4); POTASSIUM 3.8 MMOL/L (3.5-5.1)
[2018-04-12 07:00] VITALS: BP 121/70
[2018-04-12] MEDS: K and/or MAG REPLACEMENT MC SCH (08:00)
[2018-04-12] MEDS: fluconazole 100mg tablet PO SCH (08:39)
[2018-04-12] MEDS: multivitamins, therapeutics tablet PO SCH (08:39)
[2018-04-12] MEDS: lactobacillus rhamnosus 10,000 MMU CELLS/CAPSULE PO SCH ×2 (08:39→21:28)
[2018-04-12] MEDS: thiamine 100mg tablet PO SCH (08:39)
[2018-04-12] MEDS: propranolol 10mg tablet PO SCH ×3 (08:40→21:29)
[2018-04-12] MEDS: nicotine 21mg patch - 24 hr TD SCH (08:40)
[2018-04-12] MEDS: folic acid 1mg tablet PO SCH (08:40)
[2018-04-12] MEDS: enoxaparin 40mg/0.4ml syringe SUBCUT SCH (08:40)
[2018-04-12] MEDS: nystatin 15 GM powder TP SCH ×2 (08:49→21:58)
[2018-04-12 12:00] VITALS: BP 101/66
[2018-04-12 19:00] VITALS: BP 119/81
[2018-04-12] MEDS: tamsulosin 0.4mg capsule PO SCH (21:28)
[2018-04-12] MEDS: chlordiazePOXIDE 25mg capsule PO SCH (21:30)
[2018-04-12] MEDS: gabapentin 400mg capsule PO SCH (21:30)
[2018-04-12] MEDS: HYDROcodone/acetaminophen 5mg/325mg tablet PO PRN (21:31)
[2018-04-12 23:00] VITALS: BP 108/68
[2018-04-13 07:00] VITALS: BP 108/79
[2018-04-13] MEDS: lactobacillus rhamnosus 10,000 MMU CELLS/CAPSULE PO SCH ×2 (07:51→20:47)
[2018-04-13] MEDS: propranolol 10mg tablet PO SCH ×3 (07:51→20:47)
[2018-04-13] MEDS: multivitamins, therapeutics tablet PO SCH (07:51)
[2018-04-13] MEDS: thiamine 100mg tablet PO SCH (07:51)
[2018-04-13] MEDS: folic acid 1mg tablet PO SCH (07:51)
[2018-04-13] MEDS: nicotine 21mg patch - 24 hr TD SCH (07:51)
[2018-04-13] MEDS: enoxaparin 40mg/0.4ml syringe SUBCUT SCH (07:52)
[2018-04-13] MEDS: nystatin 15 GM powder TP SCH ×2 (07:57→20:48)
[2018-04-13] MEDS: K and/or MAG REPLACEMENT MC SCH (08:00)
[2018-04-13 12:55] VITALS: BP 108/71
[2018-04-13 20:00] VITALS: BP 113/60
[2018-04-13] MEDS: tamsulosin 0.4mg capsule PO SCH (20:47)
[2018-04-13] MEDS: gabapentin 400mg capsule PO SCH (20:47)
[2018-04-13] MEDS ORDERED: chlordiazePOXIDE 25mg capsule PO ONE (21:00)
[2018-04-14] VITALS: BP 124/75
[2018-04-14 07:28] VITALS: BP 134/86
[2018-04-14] MEDS: K and/or MAG REPLACEMENT MC SCH (08:00)
[2018-04-14] MEDS: thiamine 100mg tablet PO SCH (08:03)
[2018-04-14] MEDS: multivitamins, therapeutics tablet PO SCH (08:03)
[2018-04-14] MEDS: folic acid 1mg tablet PO SCH (08:03)
[2018-04-14] MEDS: propranolol 10mg tablet PO SCH ×3 (08:03→21:20)
[2018-04-14] MEDS: lactobacillus rhamnosus 10,000 MMU CELLS/CAPSULE PO SCH ×2 (08:03→21:20)
[2018-04-14] MEDS: enoxaparin 40mg/0.4ml syringe SUBCUT SCH (08:05)
[2018-04-14] MEDS: nicotine 21mg patch - 24 hr TD SCH (08:06)
[2018-04-14] MEDS: nystatin 15 GM powder TP SCH ×2 (08:10→20:00)
[2018-04-14 12:11] VITALS: BP 132/89
[2018-04-14 20:00] VITALS: BP 120/81
[2018-04-14] MEDS: tamsulosin 0.4mg capsule PO SCH (21:20)
[2018-04-14] MEDS: gabapentin 400mg capsule PO SCH (21:20)
[2018-04-15 00:36] VITALS: BP 119/78
[2018-04-15 07:33] VITALS: BP 115/81
[2018-04-15] MEDS: nicotine 21mg patch - 24 hr TD SCH (07:53)
[2018-04-15] MEDS: thiamine 100mg tablet PO SCH (07:54)
[2018-04-15] MEDS: lactobacillus rhamnosus 10,000 MMU CELLS/CAPSULE PO SCH ×2 (07:54→20:25)
[2018-04-15] MEDS: enoxaparin 40mg/0.4ml syringe SUBCUT SCH (07:54)
[2018-04-15] MEDS: propranolol 10mg tablet PO SCH ×3 (07:54→20:25)
[2018-04-15] MEDS: multivitamins, therapeutics tablet PO SCH (07:54)
[2018-04-15] MEDS: folic acid 1mg tablet PO SCH (07:55)
[2018-04-15] MEDS: nystatin 15 GM powder TP SCH ×2 (07:55→20:00)
[2018-04-15] MEDS: K and/or MAG REPLACEMENT MC SCH (08:00)
[2018-04-15 12:00] VITALS: BP 123/75
[2018-04-15 20:00] VITALS: BP 108/64
[2018-04-15] MEDS: tamsulosin 0.4mg capsule PO SCH (20:25)
[2018-04-15] MEDS: gabapentin 400mg capsule PO SCH (20:25)
[2018-04-16] VITALS: BP 111/80
[2018-04-16] MEDS: nystatin 15 GM powder TP SCH ×2 (08:00→21:25)
[2018-04-16] MEDS: K and/or MAG REPLACEMENT MC SCH (08:00)
[2018-04-16 08:01] VITALS: BP 119/76
[2018-04-16] MEDS: nicotine 21mg patch - 24 hr TD SCH (08:10)
[2018-04-16] MEDS: enoxaparin 40mg/0.4ml syringe SUBCUT SCH (08:11)
[2018-04-16] MEDS: thiamine 100mg tablet PO SCH (08:11)
[2018-04-16] MEDS: lactobacillus rhamnosus 10,000 MMU CELLS/CAPSULE PO SCH ×2 (08:11→21:20)
[2018-04-16] MEDS: multivitamins, therapeutics tablet PO SCH (08:11)
[2018-04-16] MEDS: folic acid 1mg tablet PO SCH (08:11)
[2018-04-16] MEDS: propranolol 10mg tablet PO SCH ×3 (08:13→21:20)
[2018-04-16 11:27] VITALS: BP 110/80
[2018-04-16 20:00] VITALS: BP 112/71
[2018-04-16] MEDS: tamsulosin 0.4mg capsule PO SCH (21:20)
[2018-04-16] MEDS: gabapentin 400mg capsule PO SCH (21:20)
[2018-04-17] VITALS: BP 117/70
[2018-04-17] MEDS: nicotine 21mg patch - 24 hr TD SCH (07:35)
[2018-04-17] MEDS: propranolol 10mg tablet PO SCH ×3 (07:35→21:59)
[2018-04-17] MEDS: thiamine 100mg tablet PO SCH (07:35)
[2018-04-17] MEDS: multivitamins, therapeutics tablet PO SCH (07:35)
[2018-04-17] MEDS: folic acid 1mg tablet PO SCH (07:35)
[2018-04-17] MEDS: lactobacillus rhamnosus 10,000 MMU CELLS/CAPSULE PO SCH ×2 (07:35→21:59)
[2018-04-17] MEDS: enoxaparin 40mg/0.4ml syringe SUBCUT SCH (07:36)
[2018-04-17] MEDS: K and/or MAG REPLACEMENT MC SCH (08:00)
[2018-04-17] MEDS: nystatin 15 GM powder TP SCH ×2 (08:00→22:00)
[2018-04-17 09:36] VITALS: BP 122/79
[2018-04-17 11:56] VITALS: BP 113/73
[2018-04-17 19:00] VITALS: BP 115/79
[2018-04-17] MEDS: gabapentin 400mg capsule PO SCH (21:59)
[2018-04-17] MEDS: tamsulosin 0.4mg capsule PO SCH (21:59)
[2018-04-17 23:00] VITALS: BP 106/61
[2018-04-18 07:25] VITALS: BP 110/70
[2018-04-18] MEDS: K and/or MAG REPLACEMENT MC SCH (08:00)
[2018-04-18] MEDS: lactobacillus rhamnosus 10,000 MMU CELLS/CAPSULE PO SCH ×2 (09:00→20:43)
[2018-04-18] MEDS: thiamine 100mg tablet PO SCH (09:00)
[2018-04-18] MEDS: nicotine 21mg patch - 24 hr TD SCH (09:01)
[2018-04-18] MEDS: propranolol 10mg tablet PO SCH ×3 (09:01→20:43)
[2018-04-18] MEDS: folic acid 1mg tablet PO SCH (09:01)
[2018-04-18] MEDS: multivitamins, therapeutics tablet PO SCH (09:01)
[2018-04-18] MEDS: enoxaparin 40mg/0.4ml syringe SUBCUT SCH (09:02)
[2018-04-18] MEDS: nystatin 15 GM powder TP SCH ×2 (09:08→20:43)
[2018-04-18 12:00] VITALS: BP 111/79
[2018-04-18 19:00] VITALS: BP 125/91
[2018-04-18] MEDS: tamsulosin 0.4mg capsule PO SCH (20:43)
[2018-04-18] MEDS: gabapentin 400mg capsule PO SCH (20:43)
[2018-04-18 23:00] VITALS: BP 134/85
[2018-04-19 08:00] VITALS: BP 136/88
[2018-04-19] MEDS: K and/or MAG REPLACEMENT MC SCH (08:00)
[2018-04-19] MEDS: thiamine 100mg tablet PO SCH (08:56)
[2018-04-19] MEDS: propranolol 10mg tablet PO SCH ×3 (08:56→21:00)
[2018-04-19] MEDS: multivitamins, therapeutics tablet PO SCH (08:56)
[2018-04-19] MEDS: lactobacillus rhamnosus 10,000 MMU CELLS/CAPSULE PO SCH ×2 (08:56→21:00)
[2018-04-19] MEDS: folic acid 1mg tablet PO SCH (08:56)
[2018-04-19] MEDS: nicotine 21mg patch - 24 hr TD SCH (08:59)
[2018-04-19] MEDS: nystatin 15 GM powder TP SCH ×2 (08:59→21:00)
[2018-04-19] MEDS: enoxaparin 40mg/0.4ml syringe SUBCUT SCH (09:01)
[2018-04-19 11:00] VITALS: BP 117/77
[2018-04-19 20:00] VITALS: BP 111/73
[2018-04-19] MEDS: gabapentin 400mg capsule PO SCH (21:00)
[2018-04-19] MEDS: tamsulosin 0.4mg capsule PO SCH (21:00)
[2018-04-20] VITALS: BP 118/75
[2018-04-20 07:43] VITALS: BP 109/75
[2018-04-20] MEDS: K and/or MAG REPLACEMENT MC SCH (08:00)
[2018-04-20] MEDS: lactobacillus rhamnosus 10,000 MMU CELLS/CAPSULE PO SCH ×2 (09:14→21:49)
[2018-04-20] MEDS: nystatin 15 GM powder TP SCH ×2 (09:15→21:52)
[2018-04-20] MEDS: folic acid 1mg tablet PO SCH (09:15)
[2018-04-20] MEDS: propranolol 10mg tablet PO SCH ×3 (09:15→21:50)
[2018-04-20] MEDS: thiamine 100mg tablet PO SCH (09:15)
[2018-04-20] MEDS: nicotine 21mg patch - 24 hr TD SCH (09:15)
[2018-04-20] MEDS: multivitamins, therapeutics tablet PO SCH (09:15)
[2018-04-20] MEDS: enoxaparin 40mg/0.4ml syringe SUBCUT SCH (09:16)
[2018-04-20 11:54] VITALS: BP 108/71
[2018-04-20 19:00] VITALS: BP 116/63
[2018-04-20] MEDS: tamsulosin 0.4mg capsule PO SCH (21:49)
[2018-04-20] MEDS: gabapentin 400mg capsule PO SCH (21:50)
[2018-04-21] VITALS: BP 134/66
[2018-04-21 07:22] VITALS: BP 125/89
[2018-04-21] MEDS: K and/or MAG REPLACEMENT MC SCH (08:00)
[2018-04-21] MEDS: lactobacillus rhamnosus 10,000 MMU CELLS/CAPSULE PO SCH ×2 (09:27→21:42)
[2018-04-21] MEDS: enoxaparin 40mg/0.4ml syringe SUBCUT SCH (09:27)
[2018-04-21] MEDS: nicotine 21mg patch - 24 hr TD SCH (09:27)
[2018-04-21] MEDS: nystatin 15 GM powder TP SCH ×2 (09:28→21:42)
[2018-04-21] MEDS: folic acid 1mg tablet PO SCH (09:28)
[2018-04-21] MEDS: thiamine 100mg tablet PO SCH (09:28)
[2018-04-21] MEDS: propranolol 10mg tablet PO SCH ×3 (09:28→21:42)
[2018-04-21] MEDS: multivitamins, therapeutics tablet PO SCH (09:36)
[2018-04-21 12:32] VITALS: BP 120/79
[2018-04-21 20:00] VITALS: BP 137/87
[2018-04-21] MEDS: gabapentin 400mg capsule PO SCH (21:42)
[2018-04-21] MEDS: tamsulosin 0.4mg capsule PO SCH (21:42)
[2018-04-22] VITALS: BP 130/68
[2018-04-22 08:00] VITALS: BP 132/76
[2018-04-22] MEDS: K and/or MAG REPLACEMENT MC SCH (08:00)
[2018-04-22 08:17] LABS: BASOPHILS % (AUTO) 0.3 % (0-1); EOSINOPHILS # (AUTO) 0.2 X10'3 (0-0.9); EOSINOPHILS % (AUTO) 2.7 % (0-6); HEMATOCRIT 34.1 % (42.0-52.0); HEMOGLOBIN 11.6 g/dl (14.0-17.9); LYMPHOCYTES # (AUTO) 1.9 X10'3 (1.1-4.8); LYMPHOCYTES % (AUTO) 23.5 % (21-51); MEAN CORPUSCULAR HEMOGLOBIN 31.5 PG (27.0-31.0); MEAN CORPUSCULAR HGB CONC 33.9 % (33.0-36.5); MEAN CORPUSCULAR VOLUME 92.9 FL (78-98); MEAN PLATELET VOLUME 8.1 FL (7.4-10.4); MONOCYTES # (AUTO) 0.5 X10'3 (0-0.9); MONOCYTES % (AUTO) 6.6 % (2-12); NEUTROPHILS # (AUTO) 5.5 X10'3 (1.8-7.7); NEUTROPHILS % (AUTO) 66.9 % (42-75); PLATELET COUNT 190 X10'3 (140-440); RED BLOOD COUNT 3.67 X10'6 (4.70-6.10); RED CELL DISTRIBUTION WIDTH 14.8 % (11.5-14.5); WHITE BLOOD COUNT 8.2 X10'3 (4.5-11.0)
[2018-04-22 08:25] LABS: ALANINE AMINOTRANSFERASE 34 U/L (12-78); ALBUMIN 2.6 G/DL (3.4-5.0); ALBUMIN/GLOBULIN RATIO 0.6 (1.1-1.5); ALKALINE PHOSPHATASE 46 IU/L (46-116); ANION GAP 9 (8-16); ASPARTATE AMINO TRANSFERASE 22 U/L (10-37); BILIRUBIN,TOTAL 0.6 MG/DL (0.1-1.0); BLOOD UREA NITROGEN 15 MG/DL (7-18); BUN/CREATININE RATIO 20.5 (5.4-32.0); CALCIUM 9.2 MG/DL (8.5-10.1); CHLORIDE 105 MMOL/L (99-107); CREATININE 0.73 MG/DL (0.60-1.10); GLUCOSE 102 MG/DL (70-104); POTASSIUM 3.7 MMOL/L (3.5-5.1); SODIUM 141 MMOL/L (135-145); TOTAL CARBON DIOXIDE 27.5 MMOL/L (24-32); TOTAL PROTEIN 7.1 G/DL (6.4-8.2); eGFR > 90 ML/MIN
[2018-04-22] MEDS: multivitamins, therapeutics tablet PO SCH (08:45)
[2018-04-22] MEDS: cyanocobalamin 500mcg tablet PO SCH (08:45)
[2018-04-22] MEDS: propranolol 10mg tablet PO SCH ×3 (08:45→20:41)
[2018-04-22] MEDS: thiamine 100mg tablet PO SCH (08:45)
[2018-04-22] MEDS: folic acid 1mg tablet PO SCH (08:46)
[2018-04-22] MEDS: lactobacillus rhamnosus 10,000 MMU CELLS/CAPSULE PO SCH ×2 (08:46→20:41)
[2018-04-22] MEDS: enoxaparin 40mg/0.4ml syringe SUBCUT SCH (08:46)
[2018-04-22] MEDS: nicotine 21mg patch - 24 hr TD SCH (08:47)
[2018-04-22] MEDS: nystatin 15 GM powder TP SCH ×2 (08:47→20:41)
[2018-04-22 12:00] VITALS: BP 113/77
[2018-04-22 20:00] VITALS: BP 140/87
[2018-04-22] MEDS: gabapentin 400mg capsule PO SCH (20:41)
[2018-04-22] MEDS: tamsulosin 0.4mg capsule PO SCH (20:41)
[2018-04-23] VITALS: BP 109/66
[2018-04-23 07:00] VITALS: BP 132/76
[2018-04-23] MEDS: K and/or MAG REPLACEMENT MC SCH (08:00)
[2018-04-23] MEDS: lactobacillus rhamnosus 10,000 MMU CELLS/CAPSULE PO SCH ×2 (08:58→20:02)
[2018-04-23] MEDS: multivitamins, therapeutics tablet PO SCH (08:58)
[2018-04-23] MEDS: propranolol 10mg tablet PO SCH ×3 (08:58→20:02)
[2018-04-23] MEDS: folic acid 1mg tablet PO SCH (08:58)
[2018-04-23] MEDS: cyanocobalamin 500mcg tablet PO SCH (08:58)
[2018-04-23] MEDS: thiamine 100mg tablet PO SCH (08:58)
[2018-04-23] MEDS: enoxaparin 40mg/0.4ml syringe SUBCUT SCH (08:59)
[2018-04-23] MEDS: nicotine 21mg patch - 24 hr TD SCH (09:00)
[2018-04-23] MEDS: nystatin 15 GM powder TP SCH ×2 (09:00→20:03)
[2018-04-23 12:00] VITALS: BP 118/74
[2018-04-23 18:00] VITALS: BP 135/86
[2018-04-23] MEDS: tamsulosin 0.4mg capsule PO SCH (20:02)
[2018-04-23] MEDS: gabapentin 400mg capsule PO SCH (20:03)
[2018-04-24] VITALS: BP 136/84
[2018-04-24 06:55] VITALS: BP 138/75
[2018-04-24] MEDS: K and/or MAG REPLACEMENT MC SCH (08:00)
[2018-04-24] MEDS: multivitamins, therapeutics tablet PO SCH (08:34)
[2018-04-24] MEDS: folic acid 1mg tablet PO SCH (08:35)
[2018-04-24] MEDS: propranolol 10mg tablet PO SCH ×3 (08:35→20:43)
[2018-04-24] MEDS: enoxaparin 40mg/0.4ml syringe SUBCUT SCH (08:35)
[2018-04-24] MEDS: lactobacillus rhamnosus 10,000 MMU CELLS/CAPSULE PO SCH ×2 (08:35→20:43)
[2018-04-24] MEDS: cyanocobalamin 500mcg tablet PO SCH (08:35)
[2018-04-24] MEDS: thiamine 100mg tablet PO SCH (08:35)
[2018-04-24] MEDS: nystatin 15 GM powder TP SCH ×2 (08:36→20:43)
[2018-04-24] MEDS: nicotine 21mg patch - 24 hr TD SCH (08:36)
[2018-04-24 12:00] VITALS: BP 143/85
[2018-04-24 18:00] VITALS: BP 145/92
[2018-04-24] MEDS: gabapentin 400mg capsule PO SCH (20:43)
[2018-04-24] MEDS: tamsulosin 0.4mg capsule PO SCH (20:43)
[2018-04-25 00:02] VITALS: BP 130/80
[2018-04-25 07:00] VITALS: BP 121/74
[2018-04-25] MEDS: K and/or MAG REPLACEMENT MC SCH (08:00)
[2018-04-25] MEDS: enoxaparin 40mg/0.4ml syringe SUBCUT SCH (08:00)
[2018-04-25] MEDS: cyanocobalamin 500mcg tablet PO SCH (08:08)
[2018-04-25] MEDS: propranolol 10mg tablet PO SCH ×3 (08:08→19:59)
[2018-04-25] MEDS: thiamine 100mg tablet PO SCH (08:08)
[2018-04-25] MEDS: nicotine 21mg patch - 24 hr TD SCH (08:08)
[2018-04-25] MEDS: nystatin 15 GM powder TP SCH ×2 (08:09→19:59)
[2018-04-25] MEDS: lactobacillus rhamnosus 10,000 MMU CELLS/CAPSULE PO SCH ×2 (08:09→19:59)
[2018-04-25] MEDS: multivitamins, therapeutics tablet PO SCH (08:09)
[2018-04-25] MEDS: folic acid 1mg tablet PO SCH (08:09)
[2018-04-25 08:35] LABS: BASOPHILS % (AUTO) 0.5 % (0-1); EOSINOPHILS # (AUTO) 0.2 X10'3 (0-0.9); EOSINOPHILS % (AUTO) 2.1 % (0-6); HEMATOCRIT 36.6 % (42.0-52.0); HEMOGLOBIN 12.7 g/dl (14.0-17.9); LYMPHOCYTES # (AUTO) 1.8 X10'3 (1.1-4.8); LYMPHOCYTES % (AUTO) 18.6 % (21-51); MEAN CORPUSCULAR HEMOGLOBIN 31.8 PG (27.0-31.0); MEAN CORPUSCULAR HGB CONC 34.6 % (33.0-36.5); MEAN CORPUSCULAR VOLUME 91.8 FL (78-98); MEAN PLATELET VOLUME 7.8 FL (7.4-10.4); MONOCYTES # (AUTO) 0.6 X10'3 (0-0.9); MONOCYTES % (AUTO) 6.5 % (2-12); NEUTROPHILS % (AUTO) 72.3 % (42-75); PLATELET COUNT 200 X10'3 (140-440); RED BLOOD COUNT 3.99 X10'6 (4.70-6.10); RED CELL DISTRIBUTION WIDTH 14.3 % (11.5-14.5); WHITE BLOOD COUNT 9.7 X10'3 (4.5-11.0)
[2018-04-25 08:49] LABS: ALANINE AMINOTRANSFERASE 37 U/L (12-78); ALBUMIN 2.8 G/DL (3.4-5.0); ALBUMIN/GLOBULIN RATIO 0.6 (1.1-1.5); ALKALINE PHOSPHATASE 49 IU/L (46-116); ANION GAP 9 (8-16); ASPARTATE AMINO TRANSFERASE 29 U/L (10-37); BILIRUBIN,TOTAL 0.7 MG/DL (0.1-1.0); BLOOD UREA NITROGEN 12 MG/DL (7-18); BUN/CREATININE RATIO 17.1 (5.4-32.0); CALCIUM 9.3 MG/DL (8.5-10.1); CHLORIDE 105 MMOL/L (99-107); GLUCOSE 112 MG/DL (70-104); POTASSIUM 3.9 MMOL/L (3.5-5.1); SODIUM 140 MMOL/L (135-145); TOTAL CARBON DIOXIDE 26.5 MMOL/L (24-32); TOTAL PROTEIN 7.5 G/DL (6.4-8.2); eGFR > 90 ML/MIN
[2018-04-25 11:00] VITALS: BP 130/83
[2018-04-25] MEDS: gabapentin 400mg capsule PO SCH (19:59)
[2018-04-25 20:00] VITALS: BP 141/92
[2018-04-25] MEDS: tamsulosin 0.4mg capsule PO SCH (20:00)
[2018-04-26] VITALS: BP 129/78
[2018-04-26 07:00] VITALS: BP 135/80
[2018-04-26] MEDS: K and/or MAG REPLACEMENT MC SCH (08:00)
[2018-04-26] MEDS: enoxaparin 40mg/0.4ml syringe SUBCUT SCH (08:00)
[2018-04-26] MEDS: thiamine 100mg tablet PO SCH (08:22)
[2018-04-26] MEDS: lactobacillus rhamnosus 10,000 MMU CELLS/CAPSULE PO SCH ×2 (08:22→19:28)
[2018-04-26] MEDS: propranolol 10mg tablet PO SCH ×3 (08:22→19:29)
[2018-04-26] MEDS: multivitamins, therapeutics tablet PO SCH (08:22)
[2018-04-26] MEDS: folic acid 1mg tablet PO SCH (08:22)
[2018-04-26] MEDS: cyanocobalamin 500mcg tablet PO SCH (08:22)
[2018-04-26] MEDS: nicotine 21mg patch - 24 hr TD SCH (08:23)
[2018-04-26] MEDS: nystatin 15 GM powder TP SCH ×2 (08:23→19:30)
[2018-04-26 11:00] VITALS: BP 126/86
[2018-04-26] MEDS: tamsulosin 0.4mg capsule PO SCH (19:28)
[2018-04-26] MEDS: gabapentin 400mg capsule PO SCH (19:29)
[2018-04-26 20:00] VITALS: BP 143/86
[2018-04-27 00:11] VITALS: BP 118/80
[2018-04-27 07:12] VITALS: BP 128/89
[2018-04-27] MEDS: K and/or MAG REPLACEMENT MC SCH (07:30)
[2018-04-27] MEDS: propranolol 10mg tablet PO SCH ×3 (08:07→20:20)
[2018-04-27] MEDS: thiamine 100mg tablet PO SCH (08:07)
[2018-04-27] MEDS: lactobacillus rhamnosus 10,000 MMU CELLS/CAPSULE PO SCH ×2 (08:07→20:20)
[2018-04-27] MEDS: folic acid 1mg tablet PO SCH (08:07)
[2018-04-27] MEDS: multivitamins, therapeutics tablet PO SCH (08:07)
[2018-04-27] MEDS: enoxaparin 40mg/0.4ml syringe SUBCUT SCH (08:07)
[2018-04-27] MEDS: nicotine 21mg patch - 24 hr TD SCH (08:07)
[2018-04-27] MEDS: cyanocobalamin 500mcg tablet PO SCH (08:07)
[2018-04-27] MEDS: nystatin 15 GM powder TP SCH ×2 (08:08→20:20)
[2018-04-27 12:15] VITALS: BP 130/88
[2018-04-27 20:00] VITALS: BP 136/96
[2018-04-27] MEDS: tamsulosin 0.4mg capsule PO SCH (20:20)
[2018-04-27] MEDS: gabapentin 400mg capsule PO SCH (20:20)
[2018-04-28] VITALS: BP 124/82
[2018-04-28 07:30] VITALS: BP 133/94
[2018-04-28] MEDS: enoxaparin 40mg/0.4ml syringe SUBCUT SCH (07:55)
[2018-04-28] MEDS: nicotine 21mg patch - 24 hr TD SCH (07:55)
[2018-04-28] MEDS: folic acid 1mg tablet PO SCH (07:56)
[2018-04-28] MEDS: lactobacillus rhamnosus 10,000 MMU CELLS/CAPSULE PO SCH ×2 (07:56→20:33)
[2018-04-28] MEDS: multivitamins, therapeutics tablet PO SCH (07:56)
[2018-04-28] MEDS: cyanocobalamin 500mcg tablet PO SCH (07:56)
[2018-04-28] MEDS: propranolol 10mg tablet PO SCH ×3 (07:56→20:32)
[2018-04-28] MEDS: thiamine 100mg tablet PO SCH (07:56)
[2018-04-28] MEDS: nystatin 15 GM powder TP SCH ×3 (08:00→20:33)
[2018-04-28] MEDS: K and/or MAG REPLACEMENT MC SCH (08:06)
[2018-04-28 12:00] VITALS: BP 133/91
[2018-04-28 20:00] VITALS: BP 110/63
[2018-04-28] MEDS: gabapentin 400mg capsule PO SCH (20:32)
[2018-04-28] MEDS: tamsulosin 0.4mg capsule PO SCH (20:32)
[2018-04-29] VITALS: BP 120/78
[2018-04-29 08:00] VITALS: BP 117/88
[2018-04-29] MEDS: K and/or MAG REPLACEMENT MC SCH (08:00)
[2018-04-29] MEDS: nicotine 21mg patch - 24 hr TD SCH (08:46)
[2018-04-29] MEDS: thiamine 100mg tablet PO SCH (08:46)
[2018-04-29] MEDS: multivitamins, therapeutics tablet PO SCH (08:46)
[2018-04-29] MEDS: cyanocobalamin 500mcg tablet PO SCH (08:46)
[2018-04-29] MEDS: lactobacillus rhamnosus 10,000 MMU CELLS/CAPSULE PO SCH ×2 (08:47→20:24)
[2018-04-29] MEDS: propranolol 10mg tablet PO SCH ×3 (08:47→20:24)
[2018-04-29] MEDS: folic acid 1mg tablet PO SCH (08:47)
[2018-04-29] MEDS: enoxaparin 40mg/0.4ml syringe SUBCUT SCH (08:52)
[2018-04-29] MEDS: nystatin 15 GM powder TP SCH ×2 (08:53→20:00)
[2018-04-29 12:00] VITALS: BP 128/86
[2018-04-29 18:00] VITALS: BP 142/90
[2018-04-29] MEDS: tamsulosin 0.4mg capsule PO SCH (20:24)
[2018-04-29] MEDS: gabapentin 400mg capsule PO SCH (20:24)
[2018-04-30] VITALS: BP 129/81
[2018-04-30 08:00] VITALS: BP 132/75
[2018-04-30] MEDS: K and/or MAG REPLACEMENT MC SCH (08:00)
[2018-04-30] MEDS: multivitamins, therapeutics tablet PO SCH (08:03)
[2018-04-30] MEDS: thiamine 100mg tablet PO SCH (08:03)
[2018-04-30] MEDS: propranolol 10mg tablet PO SCH ×3 (08:03→20:14)
[2018-04-30] MEDS: lactobacillus rhamnosus 10,000 MMU CELLS/CAPSULE PO SCH ×2 (08:03→20:15)
[2018-04-30] MEDS: folic acid 1mg tablet PO SCH (08:03)
[2018-04-30] MEDS: cyanocobalamin 500mcg tablet PO SCH (08:03)
[2018-04-30] MEDS: nystatin 15 GM powder TP SCH ×2 (08:04→20:14)
[2018-04-30] MEDS: nicotine 14mg patch - 24hr TD SCH (08:04)
[2018-04-30] MEDS: enoxaparin 40mg/0.4ml syringe SUBCUT SCH (08:04)
[2018-04-30 12:00] VITALS: BP 150/93
[2018-04-30 18:00] VITALS: BP 138/88
[2018-04-30] MEDS: gabapentin 400mg capsule PO SCH (20:15)
[2018-04-30] MEDS: tamsulosin 0.4mg capsule PO SCH (20:18)
[2018-04-30 23:59] VITALS: BP 128/87
[2018-05-01 07:36] VITALS: BP 141/94
[2018-05-01] MEDS: K and/or MAG REPLACEMENT MC SCH (08:00)
[2018-05-01] MEDS: enoxaparin 40mg/0.4ml syringe SUBCUT SCH (08:00)
[2018-05-01] MEDS: propranolol 10mg tablet PO SCH ×3 (08:18→20:07)
[2018-05-01] MEDS: lactobacillus rhamnosus 10,000 MMU CELLS/CAPSULE PO SCH ×2 (08:18→20:07)
[2018-05-01] MEDS: thiamine 100mg tablet PO SCH (08:18)
[2018-05-01] MEDS: multivitamins, therapeutics tablet PO SCH (08:18)
[2018-05-01] MEDS: folic acid 1mg tablet PO SCH (08:18)
[2018-05-01] MEDS: cyanocobalamin 500mcg tablet PO SCH (08:19)
[2018-05-01] MEDS: nicotine 14mg patch - 24hr TD SCH (08:20)
[2018-05-01] MEDS: nystatin 15 GM powder TP SCH ×2 (08:20→20:00)
[2018-05-01 11:22] VITALS: BP 140/90
[2018-05-01 12:01] LABS: BASOPHILS # (AUTO) 0.2 X10'3 (0-0.2); BASOPHILS % (AUTO) 1.7 % (0-1); EOSINOPHILS # (AUTO) 0.1 X10'3 (0-0.9); EOSINOPHILS % (AUTO) 1.6 % (0-6); HEMATOCRIT 35.4 % (42.0-52.0); HEMOGLOBIN 12.1 g/dl (14.0-17.9); LYMPHOCYTES # (AUTO) 1.8 X10'3 (1.1-4.8); LYMPHOCYTES % (AUTO) 19.9 % (21-51); MEAN CORPUSCULAR HGB CONC 34.1 % (33.0-36.5); MEAN CORPUSCULAR VOLUME 93.9 FL (78-98); MEAN PLATELET VOLUME 8.1 FL (7.4-10.4); MONOCYTES # (AUTO) 0.7 X10'3 (0-0.9); MONOCYTES % (AUTO) 7.2 % (2-12); NEUTROPHILS # (AUTO) 6.3 X10'3 (1.8-7.7); NEUTROPHILS % (AUTO) 69.6 % (42-75); PLATELET COUNT 214 X10'3 (140-440); RED BLOOD COUNT 3.77 X10'6 (4.70-6.10); RED CELL DISTRIBUTION WIDTH 13.1 % (11.5-14.5); WHITE BLOOD COUNT 9.1 X10'3 (4.5-11.0)
[2018-05-01 12:08] LABS: ALANINE AMINOTRANSFERASE 32 U/L (12-78); ALBUMIN 2.8 G/DL (3.4-5.0); ALBUMIN/GLOBULIN RATIO 0.6 (1.1-1.5); ALKALINE PHOSPHATASE 47 IU/L (46-116); ANION GAP 11 (8-16); ASPARTATE AMINO TRANSFERASE 21 U/L (10-37); BILIRUBIN,TOTAL 0.7 MG/DL (0.1-1.0); BLOOD UREA NITROGEN 16 MG/DL (7-18); BUN/CREATININE RATIO 20.5 (5.4-32.0); CALCIUM 9.1 MG/DL (8.5-10.1); CHLORIDE 104 MMOL/L (99-107); CREATININE 0.78 MG/DL (0.60-1.10); GLUCOSE 129 MG/DL (70-104); POTASSIUM 3.6 MMOL/L (3.5-5.1); SODIUM 142 MMOL/L (135-145); TOTAL CARBON DIOXIDE 27.4 MMOL/L (24-32); TOTAL PROTEIN 7.2 G/DL (6.4-8.2); eGFR > 90 ML/MIN
[2018-05-01 20:00] VITALS: BP 140/98
[2018-05-01] MEDS: gabapentin 400mg capsule PO SCH (20:07)
[2018-05-01] MEDS: tamsulosin 0.4mg capsule PO SCH (20:07)
[2018-05-02 07:20] VITALS: BP 132/88
[2018-05-02] MEDS: K and/or MAG REPLACEMENT MC SCH (08:00)
[2018-05-02] MEDS: lactobacillus rhamnosus 10,000 MMU CELLS/CAPSULE PO SCH ×2 (08:05→20:23)
[2018-05-02] MEDS: folic acid 1mg tablet PO SCH (08:06)
[2018-05-02] MEDS: multivitamins, therapeutics tablet PO SCH (08:06)
[2018-05-02] MEDS: thiamine 100mg tablet PO SCH (08:06)
[2018-05-02] MEDS: propranolol 10mg tablet PO SCH ×3 (08:06→20:23)
[2018-05-02] MEDS: cyanocobalamin 500mcg tablet PO SCH (08:06)
[2018-05-02] MEDS: enoxaparin 40mg/0.4ml syringe SUBCUT SCH (08:07)
[2018-05-02] MEDS: nicotine 14mg patch - 24hr TD SCH (08:08)
[2018-05-02] MEDS: nystatin 15 GM powder TP SCH ×2 (08:10→20:23)
[2018-05-02 11:17] VITALS: BP 141/88
[2018-05-02] MEDS: tamsulosin 0.4mg capsule PO SCH (20:23)
[2018-05-02] MEDS: gabapentin 400mg capsule PO SCH (20:23)
[2018-05-02] MEDS: LORazepam 0.5 MG tablet PO PRN (20:23)
[2018-05-03 07:50] VITALS: BP 125/73
[2018-05-03] MEDS: enoxaparin 40mg/0.4ml syringe SUBCUT SCH (08:00)
[2018-05-03] MEDS: K and/or MAG REPLACEMENT MC SCH (08:00)
[2018-05-03] MEDS: cyanocobalamin 500mcg tablet PO SCH (08:12)
[2018-05-03] MEDS: multivitamins, therapeutics tablet PO SCH (08:12)
[2018-05-03] MEDS: thiamine 100mg tablet PO SCH (08:13)
[2018-05-03] MEDS: nicotine 14mg patch - 24hr TD SCH (08:13)
[2018-05-03] MEDS: propranolol 10mg tablet PO SCH ×3 (08:13→20:22)
[2018-05-03] MEDS: lactobacillus rhamnosus 10,000 MMU CELLS/CAPSULE PO SCH ×2 (08:13→20:22)
[2018-05-03] MEDS: folic acid 1mg tablet PO SCH (08:13)
[2018-05-03] MEDS: nystatin 15 GM powder TP SCH ×2 (08:20→20:22)
[2018-05-03 11:34] VITALS: BP 110/67
[2018-05-03] MEDS: LORazepam 1 MG tablet PO PRN (14:03)
[2018-05-03 19:30] VITALS: BP 127/85
[2018-05-03] MEDS: gabapentin 400mg capsule PO SCH (20:22)
[2018-05-03] MEDS: tamsulosin 0.4mg capsule PO SCH (20:22)
[2018-05-04] VITALS: BP 131/79
[2018-05-04 07:25] VITALS: BP 120/83
[2018-05-04] MEDS: K and/or MAG REPLACEMENT MC SCH (08:00)
[2018-05-04] MEDS: thiamine 100mg tablet PO SCH (08:34)
[2018-05-04] MEDS: nicotine 14mg patch - 24hr TD SCH (08:34)
[2018-05-04] MEDS: lactobacillus rhamnosus 10,000 MMU CELLS/CAPSULE PO SCH ×2 (08:34→20:51)
[2018-05-04] MEDS: propranolol 10mg tablet PO SCH ×3 (08:35→20:51)
[2018-05-04] MEDS: multivitamins, therapeutics tablet PO SCH (08:35)
[2018-05-04] MEDS: folic acid 1mg tablet PO SCH (08:35)
[2018-05-04] MEDS: enoxaparin 40mg/0.4ml syringe SUBCUT SCH (08:35)
[2018-05-04] MEDS: cyanocobalamin 500mcg tablet PO SCH (08:35)
[2018-05-04] MEDS: nystatin 15 GM powder TP SCH ×2 (08:40→20:00)
[2018-05-04 12:00] VITALS: BP 131/89
[2018-05-04 20:00] VITALS: BP 117/79
[2018-05-04] MEDS: tamsulosin 0.4mg capsule PO SCH (20:51)
[2018-05-04] MEDS: gabapentin 400mg capsule PO SCH (20:51)
[2018-05-05] VITALS: BP 131/79
[2018-05-05 07:36] VITALS: BP 125/77
[2018-05-05] MEDS: thiamine 100mg tablet PO SCH (07:43)
[2018-05-05] MEDS: multivitamins, therapeutics tablet PO SCH (07:43)
[2018-05-05] MEDS: folic acid 1mg tablet PO SCH (07:43)
[2018-05-05] MEDS: cyanocobalamin 500mcg tablet PO SCH (07:43)
[2018-05-05] MEDS: lactobacillus rhamnosus 10,000 MMU CELLS/CAPSULE PO SCH ×2 (07:43→20:07)
[2018-05-05] MEDS: propranolol 10mg tablet PO SCH ×3 (07:43→20:07)
[2018-05-05] MEDS: nicotine 14mg patch - 24hr TD SCH (07:43)
[2018-05-05] MEDS: enoxaparin 40mg/0.4ml syringe SUBCUT SCH (07:44)
[2018-05-05] MEDS: nystatin 15 GM powder TP SCH ×2 (07:54→20:07)
[2018-05-05] MEDS: K and/or MAG REPLACEMENT MC SCH (08:00)
[2018-05-05 11:41] VITALS: BP 132/89
[2018-05-05] MEDS: LORazepam 0.5 MG tablet PO PRN (15:27)
[2018-05-05 18:00] VITALS: BP 135/78
[2018-05-05] MEDS: gabapentin 400mg capsule PO SCH (20:07)
[2018-05-05] MEDS: tamsulosin 0.4mg capsule PO SCH (20:07)
[2018-05-05 23:30] VITALS: BP 119/87
[2018-05-06 07:51] VITALS: BP 145/83
[2018-05-06] MEDS: K and/or MAG REPLACEMENT MC SCH (08:00)
[2018-05-06] MEDS: enoxaparin 40mg/0.4ml syringe SUBCUT SCH (08:03)
[2018-05-06] MEDS: nicotine 14mg patch - 24hr TD SCH (08:03)
[2018-05-06] MEDS: folic acid 1mg tablet PO SCH (08:04)
[2018-05-06] MEDS: thiamine 100mg tablet PO SCH (08:04)
[2018-05-06] MEDS: multivitamins, therapeutics tablet PO SCH (08:04)
[2018-05-06] MEDS: lactobacillus rhamnosus 10,000 MMU CELLS/CAPSULE PO SCH ×2 (08:04→20:02)
[2018-05-06] MEDS: propranolol 10mg tablet PO SCH ×3 (08:04→20:42)
[2018-05-06] MEDS: nystatin 15 GM powder TP SCH ×2 (08:04→20:03)
[2018-05-06] MEDS: cyanocobalamin 500mcg tablet PO SCH (08:04)
[2018-05-06 11:50] VITALS: BP 136/84
[2018-05-06 19:00] VITALS: BP 142/96
[2018-05-06] MEDS: gabapentin 400mg capsule PO SCH (20:42)
[2018-05-06] MEDS: tamsulosin 0.4mg capsule PO SCH (20:42)
[2018-05-06] MEDS: LORazepam 1 MG tablet PO PRN (20:42)
[2018-05-07] VITALS: BP 139/90
[2018-05-07 06:56] VITALS: BP 151/93
[2018-05-07] MEDS: lactobacillus rhamnosus 10,000 MMU CELLS/CAPSULE PO SCH ×2 (07:46→20:10)
[2018-05-07] MEDS: nicotine 14mg patch - 24hr TD SCH (07:46)
[2018-05-07] MEDS: thiamine 100mg tablet PO SCH (07:46)
[2018-05-07] MEDS: folic acid 1mg tablet PO SCH (07:47)
[2018-05-07] MEDS: propranolol 10mg tablet PO SCH ×3 (07:47→20:43)
[2018-05-07] MEDS: enoxaparin 40mg/0.4ml syringe SUBCUT SCH (07:47)
[2018-05-07] MEDS: multivitamins, therapeutics tablet PO SCH (07:47)
[2018-05-07] MEDS: cyanocobalamin 500mcg tablet PO SCH (07:47)
[2018-05-07] MEDS: K and/or MAG REPLACEMENT MC SCH (08:00)
[2018-05-07] MEDS: nystatin 15 GM powder TP SCH ×2 (08:00→20:14)
[2018-05-07 11:00] VITALS: BP 126/53
[2018-05-07 19:00] VITALS: BP 150/88
[2018-05-07] MEDS: tamsulosin 0.4mg capsule PO SCH (20:42)
[2018-05-07] MEDS: gabapentin 400mg capsule PO SCH (20:43)
[2018-05-08] VITALS: BP 131/86
[2018-05-08 06:54] VITALS: BP 138/90
[2018-05-08] MEDS: cyanocobalamin 500mcg tablet PO SCH (07:45)
[2018-05-08] MEDS: propranolol 10mg tablet PO SCH ×3 (07:45→20:30)
[2018-05-08] MEDS: folic acid 1mg tablet PO SCH (07:45)
[2018-05-08] MEDS: nicotine 14mg patch - 24hr TD SCH (07:45)
[2018-05-08] MEDS: lactobacillus rhamnosus 10,000 MMU CELLS/CAPSULE PO SCH ×2 (07:45→20:29)
[2018-05-08] MEDS: multivitamins, therapeutics tablet PO SCH (07:45)
[2018-05-08] MEDS: thiamine 100mg tablet PO SCH (07:45)
[2018-05-08] MEDS: enoxaparin 40mg/0.4ml syringe SUBCUT SCH (07:45)
[2018-05-08] MEDS: nystatin 15 GM powder TP SCH ×2 (07:54→20:30)
[2018-05-08] MEDS: K and/or MAG REPLACEMENT MC SCH (08:00)
[2018-05-08 11:00] VITALS: BP 126/81
[2018-05-08 20:00] VITALS: BP 125/85
[2018-05-08] MEDS: gabapentin 400mg capsule PO SCH (20:30)
[2018-05-08] MEDS: acetaminophen 325mg tablet PO PRN (20:30)
[2018-05-08] MEDS: tamsulosin 0.4mg capsule PO SCH (20:30)
[2018-05-08 23:00] VITALS: BP 129/80
[2018-05-09 07:00] VITALS: BP 135/84
[2018-05-09] MEDS: K and/or MAG REPLACEMENT MC SCH (08:00)
[2018-05-09] MEDS: thiamine 100mg tablet PO SCH (08:04)
[2018-05-09] MEDS: multivitamins, therapeutics tablet PO SCH (08:04)
[2018-05-09] MEDS: lactobacillus rhamnosus 10,000 MMU CELLS/CAPSULE PO SCH ×2 (08:04→20:32)
[2018-05-09] MEDS: cyanocobalamin 500mcg tablet PO SCH (08:04)
[2018-05-09] MEDS: folic acid 1mg tablet PO SCH (08:04)
[2018-05-09] MEDS: propranolol 10mg tablet PO SCH ×3 (08:04→20:32)
[2018-05-09] MEDS: nicotine 14mg patch - 24hr TD SCH (08:05)
[2018-05-09] MEDS: nystatin 15 GM powder TP SCH ×2 (08:05→20:59)
[2018-05-09] MEDS: enoxaparin 40mg/0.4ml syringe SUBCUT SCH (08:05)
[2018-05-09 11:22] VITALS: BP 133/83
[2018-05-09 20:00] VITALS: BP 135/86
[2018-05-09] MEDS: gabapentin 400mg capsule PO SCH (20:32)
[2018-05-09] MEDS: tamsulosin 0.4mg capsule PO SCH (20:32)
[2018-05-10] VITALS: BP 133/80
[2018-05-10 07:00] VITALS: BP 129/89
[2018-05-10] MEDS: K and/or MAG REPLACEMENT MC SCH (08:00)
[2018-05-10] MEDS: propranolol 10mg tablet PO SCH ×3 (09:01→20:11)
[2018-05-10] MEDS: cyanocobalamin 500mcg tablet PO SCH (09:01)
[2018-05-10] MEDS: thiamine 100mg tablet PO SCH (09:01)
[2018-05-10] MEDS: folic acid 1mg tablet PO SCH (09:01)
[2018-05-10] MEDS: lactobacillus rhamnosus 10,000 MMU CELLS/CAPSULE PO SCH ×2 (09:01→20:11)
[2018-05-10] MEDS: nicotine 14mg patch - 24hr TD SCH (09:02)
[2018-05-10] MEDS: multivitamins, therapeutics tablet PO SCH (09:02)
[2018-05-10] MEDS: enoxaparin 40mg/0.4ml syringe SUBCUT SCH (09:02)
[2018-05-10] MEDS: nystatin 15 GM powder TP SCH ×2 (09:02→20:10)
[2018-05-10 12:00] VITALS: BP 137/90
[2018-05-10 19:00] VITALS: BP 131/80
[2018-05-10] MEDS: tamsulosin 0.4mg capsule PO SCH (20:11)
[2018-05-10] MEDS: gabapentin 400mg capsule PO SCH (20:11)
[2018-05-11] VITALS: BP 118/75
[2018-05-11 07:39] VITALS: BP 128/86
[2018-05-11] MEDS: enoxaparin 40mg/0.4ml syringe SUBCUT SCH (08:00)
[2018-05-11] MEDS: K and/or MAG REPLACEMENT MC SCH (08:00)
[2018-05-11] MEDS: folic acid 1mg tablet PO SCH (08:32)
[2018-05-11] MEDS: thiamine 100mg tablet PO SCH (08:32)
[2018-05-11] MEDS: multivitamins, therapeutics tablet PO SCH (08:32)
[2018-05-11] MEDS: lactobacillus rhamnosus 10,000 MMU CELLS/CAPSULE PO SCH ×2 (08:32→20:37)
[2018-05-11] MEDS: propranolol 10mg tablet PO SCH ×3 (08:33→20:37)
[2018-05-11] MEDS: nicotine 14mg patch - 24hr TD SCH (08:33)
[2018-05-11] MEDS: cyanocobalamin 500mcg tablet PO SCH (08:33)
[2018-05-11] MEDS: nystatin 15 GM powder TP SCH ×2 (08:36→20:00)
[2018-05-11 11:00] VITALS: BP 124/85
[2018-05-11 20:00] VITALS: BP 144/87
[2018-05-11] MEDS: tamsulosin 0.4mg capsule PO SCH (20:37)
[2018-05-11] MEDS: gabapentin 400mg capsule PO SCH (20:37)
[2018-05-12] VITALS: BP 127/81
[2018-05-12 06:59] VITALS: BP 121/76
[2018-05-12] MEDS: K and/or MAG REPLACEMENT MC SCH (08:00)
[2018-05-12] MEDS: enoxaparin 40mg/0.4ml syringe SUBCUT SCH ×3 (08:00→08:54)
[2018-05-12] MEDS: propranolol 10mg tablet PO SCH ×3 (08:47→19:44)
[2018-05-12] MEDS: lactobacillus rhamnosus 10,000 MMU CELLS/CAPSULE PO SCH ×2 (08:47→19:44)
[2018-05-12] MEDS: cyanocobalamin 500mcg tablet PO SCH (08:47)
[2018-05-12] MEDS: multivitamins, therapeutics tablet PO SCH (08:47)
[2018-05-12] MEDS: thiamine 100mg tablet PO SCH (08:47)
[2018-05-12] MEDS: nicotine 14mg patch - 24hr TD SCH (08:48)
[2018-05-12] MEDS: folic acid 1mg tablet PO SCH (08:48)
[2018-05-12] MEDS: nystatin 15 GM powder TP SCH ×2 (08:51→19:50)
[2018-05-12 10:55] VITALS: BP 141/84
[2018-05-12 19:00] VITALS: BP 139/88
[2018-05-12] MEDS: tamsulosin 0.4mg capsule PO SCH (19:44)
[2018-05-12] MEDS: gabapentin 400mg capsule PO SCH (19:44)
[2018-05-12] MEDS: acetaminophen 325mg tablet PO PRN (19:45)
[2018-05-13] VITALS: BP 125/68
[2018-05-13 06:21] LABS: CLARITY,URINE CLOUDY (Clear); COLOR,URINE YELLOW (Yellow); GLUCOSE, URINE NEGATIVE (Neg); KETONES,URINE NEGATIVE (Neg); LEUKOCYTE ESTERASE ,URINE MODERATE (Neg); NITRITES, URINE NEGATIVE (Neg); OCCULT BLOOD,URINE SMALL (Neg); PH,URINE 5.5 (4.8-8.0); PROTEIN,URINE TRACE mg/dl (Neg)
[2018-05-13 06:22] LABS: UA COLLECTION TYPE CLN CATCH MIDSTREAM
[2018-05-13 06:30] LABS: WBC,URINE TNTC /HPF (0-4)
[2018-05-13 06:32] LABS: BACTERIA,URINE FEW /HPF (Neg); MUCUS STRANDS FEW /LPF (Neg); SQUAMOUS EPITHELIAL CELL,UR FEW /LPF (FEW); URIC ACID CRYSTALS 3+ /HPF (NEGATIVE); WBC CLUMPS,URINE FEW /HPF (NEGATIVE)
[2018-05-13 06:34] LABS: HYALINE CASTS 0-3 /LPF (NEGATIVE); YEAST MODERATE /HPF (NEGATIVE)
[2018-05-13 07:35] VITALS: BP 133/85
[2018-05-13] MEDS: enoxaparin 40mg/0.4ml syringe SUBCUT SCH (08:00)
[2018-05-13] MEDS: K and/or MAG REPLACEMENT MC SCH (08:00)
[2018-05-13] MEDS: nystatin 15 GM powder TP SCH ×2 (08:00→20:19)
[2018-05-13] MEDS: nicotine 14mg patch - 24hr TD SCH (08:35)
[2018-05-13] MEDS: lactobacillus rhamnosus 10,000 MMU CELLS/CAPSULE PO SCH (08:35)
[2018-05-13] MEDS: thiamine 100mg tablet PO SCH (08:36)
[2018-05-13] MEDS: propranolol 10mg tablet PO SCH ×3 (08:36→20:15)
[2018-05-13] MEDS: folic acid 1mg tablet PO SCH (08:36)
[2018-05-13] MEDS: cyanocobalamin 500mcg tablet PO SCH (08:36)
[2018-05-13] MEDS: multivitamins, therapeutics tablet PO SCH (08:36)
[2018-05-13 11:00] VITALS: BP 132/87
[2018-05-13 11:50] LABS: BASOPHILS % (AUTO) 0 % (0-1); EOSINOPHILS # (AUTO) 0.4 X10'3 (0-0.9); EOSINOPHILS % (AUTO) 1.9 % (0-6); HEMATOCRIT 36.6 % (42.0-52.0); HEMOGLOBIN 12.4 g/dl (14.0-17.9); LYMPHOCYTES # (AUTO) 1.4 X10'3 (1.1-4.8); MEAN CORPUSCULAR HEMOGLOBIN 31.2 PG (27.0-31.0); MEAN CORPUSCULAR HGB CONC 33.7 % (33.0-36.5); MEAN CORPUSCULAR VOLUME 92.6 FL (78-98); MEAN PLATELET VOLUME 8.1 FL (7.4-10.4); MONOCYTES # (AUTO) 1.2 X10'3 (0-0.9); MONOCYTES % (AUTO) 5.9 % (2-12); NEUTROPHILS % (AUTO) 85.2 % (42-75); PLATELET COUNT 262 X10'3 (140-440); RED BLOOD COUNT 3.95 X10'6 (4.70-6.10); RED CELL DISTRIBUTION WIDTH 13.6 % (11.5-14.5); WHITE BLOOD COUNT 19.9 X10'3 (4.5-11.0)
[2018-05-13] MEDS: piperacillin/tazo 3.375gm/50ml 50 ML IV SCH ×2 (13:17→20:15)
[2018-05-13] MEDS: normal saline 1000ml 1,000 ML IV SCH (13:19)
[2018-05-13 19:00] VITALS: BP 136/75
[2018-05-13] MEDS: tamsulosin 0.4mg capsule PO SCH (20:15)
[2018-05-13] MEDS: gabapentin 400mg capsule PO SCH (20:15)
[2018-05-14] VITALS: BP 136/85
[2018-05-14] MEDS: vancomycin/NS 1 GM ADD-VANTAGE 250 ML IV SCH ×2 (00:56→13:24)
[2018-05-14] MEDS: normal saline 1000ml 1,000 ML IV SCH ×3 (00:57→15:29)
[2018-05-14] MEDS: piperacillin/tazo 3.375gm/50ml 50 ML IV SCH ×4 (02:43→20:07)
[2018-05-14 07:50] VITALS: BP 135/77
[2018-05-14] MEDS: K and/or MAG REPLACEMENT MC SCH (08:00)
[2018-05-14] MEDS: nystatin 15 GM powder TP SCH ×2 (08:00→20:07)
[2018-05-14] MEDS: enoxaparin 40mg/0.4ml syringe SUBCUT SCH (08:00)
[2018-05-14] MEDS: multivitamins, therapeutics tablet PO SCH (09:32)
[2018-05-14] MEDS: thiamine 100mg tablet PO SCH (09:32)
[2018-05-14] MEDS: propranolol 10mg tablet PO SCH ×3 (09:32→20:07)
[2018-05-14] MEDS: nicotine 14mg patch - 24hr TD SCH (09:33)
[2018-05-14 09:36] LABS: BASOPHILS % (AUTO) 0.1 % (0-1); EOSINOPHILS # (AUTO) 0.5 X10'3 (0-0.9); EOSINOPHILS % (AUTO) 2.8 % (0-6); HEMATOCRIT 28.9 % (42.0-52.0); HEMOGLOBIN 10.1 g/dl (14.0-17.9); LYMPHOCYTES # (AUTO) 1.2 X10'3 (1.1-4.8); LYMPHOCYTES % (AUTO) 6.4 % (21-51); MEAN CORPUSCULAR HEMOGLOBIN 31.6 PG (27.0-31.0); MEAN CORPUSCULAR HGB CONC 34.8 % (33.0-36.5); MEAN CORPUSCULAR VOLUME 90.9 FL (78-98); MEAN PLATELET VOLUME 7.6 FL (7.4-10.4); MONOCYTES % (AUTO) 5.6 % (2-12); NEUTROPHILS # (AUTO) 15.4 X10'3 (1.8-7.7); NEUTROPHILS % (AUTO) 85.1 % (42-75); PLATELET COUNT 262 X10'3 (140-440); RED BLOOD COUNT 3.18 X10'6 (4.70-6.10); RED CELL DISTRIBUTION WIDTH 13.6 % (11.5-14.5); WHITE BLOOD COUNT 18.1 X10'3 (4.5-11.0)
[2018-05-14 09:53] LABS: ALANINE AMINOTRANSFERASE 41 U/L (12-78); ALBUMIN 1.9 G/DL (3.4-5.0); ALBUMIN/GLOBULIN RATIO 0.4 (1.1-1.5); ALKALINE PHOSPHATASE 67 IU/L (46-116); ANION GAP 12 (8-16); ASPARTATE AMINO TRANSFERASE 25 U/L (10-37); BILIRUBIN,TOTAL 0.8 MG/DL (0.1-1.0); BLOOD UREA NITROGEN 21 MG/DL (7-18); BUN/CREATININE RATIO 16.5 (5.4-32.0); CALCIUM 8.3 MG/DL (8.5-10.1); CHLORIDE 103 MMOL/L (99-107); CREATININE 1.27 MG/DL (0.60-1.10); GLUCOSE 131 MG/DL (70-104); POTASSIUM 3.3 MMOL/L (3.5-5.1); SODIUM 137 MMOL/L (135-145); TOTAL CARBON DIOXIDE 22.1 MMOL/L (24-32); TOTAL PROTEIN 7.1 G/DL (6.4-8.2); eGFR 58 ML/MIN
[2018-05-14 12:00] VITALS: BP 121/76
[2018-05-14] MEDS ORDERED: magnesium 4gm in 100ml NS 100 ML IV PRN (12:30)
[2018-05-14] MEDS ORDERED: potassium Cl 40MEQ/NS 500ml 500 ML IV PRN ×2 (12:30)
[2018-05-14] MEDS ORDERED: potassium Cl 20 mEq SR tablet PO PRN (12:30)
[2018-05-14] MEDS ORDERED: magnesium Cl slow-release 64mg tablet PO PRN (12:30)
[2018-05-14] MEDS ORDERED: magnesium 1gm/100ml D5W IVPB 100 ML IV PRN (12:30)
[2018-05-14] MEDS: potassium Cl 20 mEq SR tablet PO PRN ×3 (13:23→22:45)
[2018-05-14 19:00] VITALS: BP 129/81
[2018-05-14] MEDS: tamsulosin 0.4mg capsule PO SCH (20:07)
[2018-05-14] MEDS: gabapentin 400mg capsule PO SCH (20:07)
[2018-05-14] MEDS: acetaminophen 325mg tablet PO PRN (20:13)
[2018-05-14] MEDS: fluconazole 100mg tablet PO SCH (22:45)
[2018-05-15] VITALS: BP 101/62
[2018-05-15] MEDS ORDERED: VANCOMYCIN LEVEL IV ONE (00:30)
[2018-05-15] MEDS: vancomycin/NS 1 GM ADD-VANTAGE 250 ML IV SCH (01:27)
[2018-05-15] MEDS: normal saline 1000ml 1,000 ML IV SCH ×2 (01:29→14:43)
[2018-05-15 01:53] LABS: POTASSIUM 3.6 MMOL/L (3.5-5.1); VANCOMYCIN,TROUGH 14.6 UG/ML (6.0-14.0)
[2018-05-15] MEDS: piperacillin/tazo 3.375gm/50ml 50 ML IV SCH ×4 (03:10→19:53)
[2018-05-15] MEDS: K and/or MAG REPLACEMENT MC SCH (07:24)
[2018-05-15] MEDS: multivitamins, therapeutics tablet PO SCH (07:34)
[2018-05-15] MEDS: lactobacillus rhamnosus 10,000 MMU CELLS/CAPSULE PO SCH ×2 (07:34→19:51)
[2018-05-15] MEDS: thiamine 100mg tablet PO SCH (07:35)
[2018-05-15] MEDS: propranolol 10mg tablet PO SCH ×3 (07:35→20:45)
[2018-05-15] MEDS: fluconazole 100mg tablet PO SCH (07:35)
[2018-05-15] MEDS: nicotine 14mg patch - 24hr TD SCH (07:37)
[2018-05-15] MEDS: enoxaparin 40mg/0.4ml syringe SUBCUT SCH (07:38)
[2018-05-15] MEDS: nystatin 15 GM powder TP SCH ×2 (08:00→20:45)
[2018-05-15 08:26] VITALS: BP 123/73
[2018-05-15 11:33] LABS: BASOPHILS # (AUTO) 0.1 X10'3 (0-0.2); BASOPHILS % (AUTO) 0.4 % (0-1); EOSINOPHILS # (AUTO) 0.2 X10'3 (0-0.9); EOSINOPHILS % (AUTO) 1.4 % (0-6); HEMATOCRIT 32.9 % (42.0-52.0); HEMOGLOBIN 11.2 g/dl (14.0-17.9); LYMPHOCYTES % (AUTO) 5.9 % (21-51); MEAN CORPUSCULAR HEMOGLOBIN 31.4 PG (27.0-31.0); MEAN CORPUSCULAR HGB CONC 34.1 % (33.0-36.5); MEAN CORPUSCULAR VOLUME 92.2 FL (78-98); MEAN PLATELET VOLUME 8.2 FL (7.4-10.4); MONOCYTES # (AUTO) 0.7 X10'3 (0-0.9); MONOCYTES % (AUTO) 3.9 % (2-12); NEUTROPHILS # (AUTO) 15.6 X10'3 (1.8-7.7); NEUTROPHILS % (AUTO) 88.4 % (42-75); PLATELET COUNT 310 X10'3 (140-440); RED BLOOD COUNT 3.57 X10'6 (4.70-6.10); RED CELL DISTRIBUTION WIDTH 13.9 % (11.5-14.5); WHITE BLOOD COUNT 17.7 X10'3 (4.5-11.0)
[2018-05-15 11:57] LABS: ALANINE AMINOTRANSFERASE 54 U/L (12-78); ALBUMIN/GLOBULIN RATIO 0.3 (1.1-1.5); ALKALINE PHOSPHATASE 85 IU/L (46-116); ANION GAP 12 (8-16); ASPARTATE AMINO TRANSFERASE 38 U/L (10-37); BLOOD UREA NITROGEN 13 MG/DL (7-18); BUN/CREATININE RATIO 9.8 (5.4-32.0); CALCIUM 8.5 MG/DL (8.5-10.1); CHLORIDE 103 MMOL/L (99-107); CREATININE 1.32 MG/DL (0.60-1.10); GLUCOSE 106 MG/DL (70-104); POTASSIUM 3.8 MMOL/L (3.5-5.1); SODIUM 136 MMOL/L (135-145); TOTAL CARBON DIOXIDE 21.5 MMOL/L (24-32); TOTAL PROTEIN 7.8 G/DL (6.4-8.2); eGFR 56 ML/MIN
[2018-05-15 12:30] VITALS: BP 132/66
[2018-05-15] MEDS: vancomycin inj 1,250 MG in normal saline 250ml IV soln 250 ML IV SCH (12:47)
[2018-05-15 19:30] VITALS: BP 143/83
[2018-05-15] MEDS: acetaminophen 325mg tablet PO PRN (20:44)
[2018-05-15] MEDS: tamsulosin 0.4mg capsule PO SCH (20:45)
[2018-05-15] MEDS: gabapentin 400mg capsule PO SCH (20:46)
[2018-05-16] VITALS: BP 103/57
[2018-05-16] MEDS: normal saline 1000ml 1,000 ML IV SCH ×2 (00:30→02:25)
[2018-05-16] MEDS: vancomycin inj 1,250 MG in normal saline 250ml IV soln 250 ML IV SCH ×2 (00:56→12:40)
[2018-05-16] MEDS: piperacillin/tazo 3.375gm/50ml 50 ML IV SCH ×3 (02:25→14:41)
[2018-05-16 05:55] LABS: BASOPHILS % (AUTO) 0 % (0-1); EOSINOPHILS # (AUTO) 0.3 X10'3 (0-0.9); EOSINOPHILS % (AUTO) 1.9 % (0-6); HEMOGLOBIN 9.3 g/dl (14.0-17.9); LYMPHOCYTES % (AUTO) 7.1 % (21-51); MEAN CORPUSCULAR HEMOGLOBIN 31.8 PG (27.0-31.0); MEAN CORPUSCULAR HGB CONC 34.5 % (33.0-36.5); MEAN CORPUSCULAR VOLUME 92.3 FL (78-98); MEAN PLATELET VOLUME 7.9 FL (7.4-10.4); MONOCYTES # (AUTO) 0.9 X10'3 (0-0.9); MONOCYTES % (AUTO) 5.9 % (2-12); NEUTROPHILS # (AUTO) 12.4 X10'3 (1.8-7.7); NEUTROPHILS % (AUTO) 85.1 % (42-75); PLATELET COUNT 236 X10'3 (140-440); RED BLOOD COUNT 2.93 X10'6 (4.70-6.10); RED CELL DISTRIBUTION WIDTH 12.9 % (11.5-14.5); WHITE BLOOD COUNT 14.6 X10'3 (4.5-11.0)
[2018-05-16 05:58] LABS: ALANINE AMINOTRANSFERASE 41 U/L (12-78); ALBUMIN 1.6 G/DL (3.4-5.0); ALBUMIN/GLOBULIN RATIO 0.3 (1.1-1.5); ALKALINE PHOSPHATASE 67 IU/L (46-116); ANION GAP 12 (8-16); ASPARTATE AMINO TRANSFERASE 25 U/L (10-37); BILIRUBIN,TOTAL 0.9 MG/DL (0.1-1.0); BLOOD UREA NITROGEN 11 MG/DL (7-18); BUN/CREATININE RATIO 8.1 (5.4-32.0); CALCIUM 7.9 MG/DL (8.5-10.1); CHLORIDE 105 MMOL/L (99-107); CREATININE 1.36 MG/DL (0.60-1.10); GLUCOSE 113 MG/DL (70-104); MAGNESIUM 1.7 MG/DL (1.5-2.4); POTASSIUM 3.6 MMOL/L (3.5-5.1); SODIUM 138 MMOL/L (135-145); TOTAL CARBON DIOXIDE 20.7 MMOL/L (24-32); TOTAL PROTEIN 6.6 G/DL (6.4-8.2); eGFR 54 ML/MIN
[2018-05-16 07:37] VITALS: BP 114/75
[2018-05-16] MEDS: K and/or MAG REPLACEMENT MC SCH (07:54)
[2018-05-16] MEDS: thiamine 100mg tablet PO SCH (07:56)
[2018-05-16] MEDS: nicotine 14mg patch - 24hr TD SCH (07:56)
[2018-05-16] MEDS: fluconazole 100mg tablet PO SCH (07:56)
[2018-05-16] MEDS: enoxaparin 40mg/0.4ml syringe SUBCUT SCH (07:56)
[2018-05-16] MEDS: lactobacillus rhamnosus 10,000 MMU CELLS/CAPSULE PO SCH ×2 (07:56→22:32)
[2018-05-16] MEDS: multivitamins, therapeutics tablet PO SCH (07:56)
[2018-05-16] MEDS: propranolol 10mg tablet PO SCH ×3 (07:56→22:32)
[2018-05-16] MEDS: nystatin 15 GM powder TP SCH ×2 (07:57→22:32)
[2018-05-16 11:23] VITALS: BP 130/68
[2018-05-16 20:00] VITALS: BP 155/90
[2018-05-16] MEDS: gabapentin 400mg capsule PO SCH (22:31)
[2018-05-16] MEDS: tamsulosin 0.4mg capsule PO SCH (22:32)
[2018-05-17] VITALS: BP 151/91
[2018-05-17] MEDS ORDERED: VANCOMYCIN LEVEL IV ONE (00:30)
[2018-05-17 07:06] LABS: BASOPHILS # (AUTO) 0.2 X10'3 (0-0.2); BASOPHILS % (AUTO) 1.4 % (0-1); EOSINOPHILS # (AUTO) 0.2 X10'3 (0-0.9); EOSINOPHILS % (AUTO) 1.3 % (0-6); HEMATOCRIT 26.8 % (42.0-52.0); HEMOGLOBIN 9.2 g/dl (14.0-17.9); LYMPHOCYTES # (AUTO) 0.8 X10'3 (1.1-4.8); LYMPHOCYTES % (AUTO) 6.1 % (21-51); MEAN CORPUSCULAR HEMOGLOBIN 31.4 PG (27.0-31.0); MEAN CORPUSCULAR HGB CONC 34.3 % (33.0-36.5); MEAN CORPUSCULAR VOLUME 91.4 FL (78-98); MEAN PLATELET VOLUME 7.4 FL (7.4-10.4); MONOCYTES # (AUTO) 0.6 X10'3 (0-0.9); MONOCYTES % (AUTO) 4.9 % (2-12); NEUTROPHILS # (AUTO) 11.5 X10'3 (1.8-7.7); NEUTROPHILS % (AUTO) 86.3 % (42-75); PLATELET COUNT 259 X10'3 (140-440); RED BLOOD COUNT 2.93 X10'6 (4.70-6.10); RED CELL DISTRIBUTION WIDTH 13.8 % (11.5-14.5); WHITE BLOOD COUNT 13.3 X10'3 (4.5-11.0)
[2018-05-17 07:19] LABS: ALANINE AMINOTRANSFERASE 40 U/L (12-78); ALBUMIN 1.6 G/DL (3.4-5.0); ALBUMIN/GLOBULIN RATIO 0.3 (1.1-1.5); ALKALINE PHOSPHATASE 66 IU/L (46-116); ANION GAP 9 (8-16); ASPARTATE AMINO TRANSFERASE 17 U/L (10-37); BILIRUBIN,TOTAL 0.5 MG/DL (0.1-1.0); BLOOD UREA NITROGEN 9 MG/DL (7-18); BUN/CREATININE RATIO 6.3 (5.4-32.0); CALCIUM 8.5 MG/DL (8.5-10.1); CHLORIDE 106 MMOL/L (99-107); CREATININE 1.43 MG/DL (0.60-1.10); GLUCOSE 102 MG/DL (70-104); MAGNESIUM 1.8 MG/DL (1.5-2.4); POTASSIUM 3.4 MMOL/L (3.5-5.1); SODIUM 138 MMOL/L (135-145); TOTAL CARBON DIOXIDE 22.7 MMOL/L (24-32); eGFR 51 ML/MIN
[2018-05-17 08:00] VITALS: BP 144/85
[2018-05-17] MEDS: K and/or MAG REPLACEMENT MC SCH (08:00)
[2018-05-17] MEDS: potassium Cl 20 mEq SR tablet PO PRN ×2 (10:32→15:16)
[2018-05-17] MEDS: thiamine 100mg tablet PO SCH (10:32)
[2018-05-17] MEDS: lactobacillus rhamnosus 10,000 MMU CELLS/CAPSULE PO SCH ×2 (10:32→22:31)
[2018-05-17] MEDS: nicotine 14mg patch - 24hr TD SCH (10:32)
[2018-05-17] MEDS: multivitamins, therapeutics tablet PO SCH (10:32)
[2018-05-17] MEDS: propranolol 10mg tablet PO SCH ×3 (10:32→22:31)
[2018-05-17] MEDS: enoxaparin 40mg/0.4ml syringe SUBCUT SCH (10:33)
[2018-05-17] MEDS: nystatin 15 GM powder TP SCH ×2 (10:33→22:34)
[2018-05-17] MEDS: fluconazole 100mg tablet PO SCH (10:33)
[2018-05-17 12:00] VITALS: BP 146/75
[2018-05-17] MEDS ORDERED: magnesium 1gm/100ml D5W IVPB 100 ML IV PRN (14:00)
[2018-05-17] MEDS ORDERED: potassium Cl 20 mEq SR tablet PO PRN (14:00)
[2018-05-17] MEDS ORDERED: magnesium 4gm in 100ml NS 100 ML IV PRN (14:00)
[2018-05-17] MEDS ORDERED: magnesium Cl slow-release 64mg tablet PO PRN (14:00)
[2018-05-17] MEDS ORDERED: potassium Cl 40MEQ/NS 500ml 500 ML IV PRN ×2 (14:00)
[2018-05-17] MEDS: acetaminophen 325mg tablet PO PRN (22:31)
[2018-05-17] MEDS: gabapentin 400mg capsule PO SCH (22:31)
[2018-05-17] MEDS: tamsulosin 0.4mg capsule PO SCH (22:31)
[2018-05-18] MEDS: potassium Cl 20 mEq SR tablet PO PRN (04:40)
[2018-05-18] MEDS: acetaminophen 325mg tablet PO PRN (04:44)
[2018-05-18 05:41] LABS: BASOPHILS # (AUTO) 0.1 X10'3 (0-0.2); BASOPHILS % (AUTO) 1.3 % (0-1); EOSINOPHILS # (AUTO) 0.3 X10'3 (0-0.9); EOSINOPHILS % (AUTO) 2.6 % (0-6); HEMATOCRIT 26.9 % (42.0-52.0); HEMOGLOBIN 9.2 g/dl (14.0-17.9); LYMPHOCYTES # (AUTO) 0.9 X10'3 (1.1-4.8); LYMPHOCYTES % (AUTO) 9.2 % (21-51); MONOCYTES # (AUTO) 0.7 X10'3 (0-0.9); MONOCYTES % (AUTO) 6.8 % (2-12); NEUTROPHILS # (AUTO) 8.2 X10'3 (1.8-7.7); NEUTROPHILS % (AUTO) 80.1 % (42-75); PLATELET COUNT 275 X10'3 (140-440); RED BLOOD COUNT 2.96 X10'6 (4.70-6.10); RED CELL DISTRIBUTION WIDTH 14.3 % (11.5-14.5); WHITE BLOOD COUNT 10.3 X10'3 (4.5-11.0)
[2018-05-18 06:02] LABS: ALANINE AMINOTRANSFERASE 37 U/L (12-78); ALBUMIN 1.6 G/DL (3.4-5.0); ALBUMIN/GLOBULIN RATIO 0.3 (1.1-1.5); ALKALINE PHOSPHATASE 73 IU/L (46-116); ANION GAP 7 (8-16); ASPARTATE AMINO TRANSFERASE 22 U/L (10-37); BILIRUBIN,TOTAL 0.4 MG/DL (0.1-1.0); BLOOD UREA NITROGEN 10 MG/DL (7-18); BUN/CREATININE RATIO 7.1 (5.4-32.0); CALCIUM 8.3 MG/DL (8.5-10.1); CHLORIDE 106 MMOL/L (99-107); GLUCOSE 113 MG/DL (70-104); MAGNESIUM 1.9 MG/DL (1.5-2.4); POTASSIUM 3.5 MMOL/L (3.5-5.1); SODIUM 137 MMOL/L (135-145); TOTAL CARBON DIOXIDE 23.9 MMOL/L (24-32); TOTAL PROTEIN 7.1 G/DL (6.4-8.2); eGFR 52 ML/MIN
[2018-05-18 07:00] VITALS: BP 139/82
[2018-05-18] MEDS: K and/or MAG REPLACEMENT MC SCH (08:00)
[2018-05-18] MEDS: lactobacillus rhamnosus 10,000 MMU CELLS/CAPSULE PO SCH ×2 (09:22→20:14)
[2018-05-18] MEDS: multivitamins, therapeutics tablet PO SCH (09:22)
[2018-05-18] MEDS: thiamine 100mg tablet PO SCH (09:23)
[2018-05-18] MEDS: propranolol 10mg tablet PO SCH ×3 (09:23→20:14)
[2018-05-18] MEDS: fluconazole 100mg tablet PO SCH (09:23)
[2018-05-18] MEDS: enoxaparin 40mg/0.4ml syringe SUBCUT SCH (09:24)
[2018-05-18] MEDS: nicotine 14mg patch - 24hr TD SCH (09:25)
[2018-05-18] MEDS: nystatin 15 GM powder TP SCH ×2 (09:29→20:15)
[2018-05-18 11:00] VITALS: BP 148/91
[2018-05-18 20:01] VITALS: BP 155/89
[2018-05-18] MEDS: tamsulosin 0.4mg capsule PO SCH (20:14)
[2018-05-18] MEDS: gabapentin 400mg capsule PO SCH (20:14)
[2018-05-19] VITALS: BP 145/82
[2018-05-19 05:31] LABS: BASOPHILS % (AUTO) 0.1 % (0-1); EOSINOPHILS # (AUTO) 0.3 X10'3 (0-0.9); EOSINOPHILS % (AUTO) 3.2 % (0-6); HEMATOCRIT 25.6 % (42.0-52.0); HEMOGLOBIN 8.8 g/dl (14.0-17.9); LYMPHOCYTES # (AUTO) 1.1 X10'3 (1.1-4.8); LYMPHOCYTES % (AUTO) 10.7 % (21-51); MEAN CORPUSCULAR HEMOGLOBIN 31.1 PG (27.0-31.0); MEAN CORPUSCULAR HGB CONC 34.4 % (33.0-36.5); MEAN CORPUSCULAR VOLUME 90.3 FL (78-98); MEAN PLATELET VOLUME 7.5 FL (7.4-10.4); MONOCYTES # (AUTO) 0.7 X10'3 (0-0.9); NEUTROPHILS # (AUTO) 8.2 X10'3 (1.8-7.7); PLATELET COUNT 289 X10'3 (140-440); RED BLOOD COUNT 2.83 X10'6 (4.70-6.10); RED CELL DISTRIBUTION WIDTH 13.6 % (11.5-14.5); WHITE BLOOD COUNT 10.4 X10'3 (4.5-11.0)
[2018-05-19 05:56] LABS: ALANINE AMINOTRANSFERASE 33 U/L (12-78); ALBUMIN 1.7 G/DL (3.4-5.0); ALBUMIN/GLOBULIN RATIO 0.3 (1.1-1.5); ALKALINE PHOSPHATASE 87 IU/L (46-116); ANION GAP 9 (8-16); ASPARTATE AMINO TRANSFERASE 25 U/L (10-37); BILIRUBIN,TOTAL 0.4 MG/DL (0.1-1.0); BLOOD UREA NITROGEN 10 MG/DL (7-18); BUN/CREATININE RATIO 7.6 (5.4-32.0); CALCIUM 8.7 MG/DL (8.5-10.1); CHLORIDE 103 MMOL/L (99-107); CREATININE 1.32 MG/DL (0.60-1.10); GLUCOSE 94 MG/DL (70-104); POTASSIUM 3.6 MMOL/L (3.5-5.1); SODIUM 136 MMOL/L (135-145); TOTAL CARBON DIOXIDE 23.6 MMOL/L (24-32); TOTAL PROTEIN 7.2 G/DL (6.4-8.2); eGFR 56 ML/MIN
[2018-05-19 07:40] VITALS: BP 147/86
[2018-05-19] MEDS: nystatin 15 GM powder TP SCH ×2 (08:00→20:30)
[2018-05-19] MEDS: K and/or MAG REPLACEMENT MC SCH (08:00)
[2018-05-19] MEDS: lactobacillus rhamnosus 10,000 MMU CELLS/CAPSULE PO SCH ×2 (08:34→20:29)
[2018-05-19] MEDS: thiamine 100mg tablet PO SCH (08:35)
[2018-05-19] MEDS: fluconazole 100mg tablet PO SCH (08:35)
[2018-05-19] MEDS: multivitamins, therapeutics tablet PO SCH (08:35)
[2018-05-19] MEDS: propranolol 10mg tablet PO SCH ×3 (08:35→20:29)
[2018-05-19] MEDS: enoxaparin 40mg/0.4ml syringe SUBCUT SCH (08:36)
[2018-05-19] MEDS: nicotine 14mg patch - 24hr TD SCH (08:37)
[2018-05-19 11:00] VITALS: BP 149/91
[2018-05-19 18:00] VITALS: BP 128/88
[2018-05-19] MEDS: gabapentin 400mg capsule PO SCH (20:29)
[2018-05-19] MEDS: tamsulosin 0.4mg capsule PO SCH (20:29)
[2018-05-20] VITALS: BP 131/74
[2018-05-20 06:24] LABS: BASOPHILS % (AUTO) 0.4 % (0-1); EOSINOPHILS # (AUTO) 0.3 X10'3 (0-0.9); EOSINOPHILS % (AUTO) 2.6 % (0-6); HEMATOCRIT 27.4 % (42.0-52.0); HEMOGLOBIN 9.4 g/dl (14.0-17.9); LYMPHOCYTES # (AUTO) 1.1 X10'3 (1.1-4.8); LYMPHOCYTES % (AUTO) 11.1 % (21-51); MEAN CORPUSCULAR HEMOGLOBIN 31.1 PG (27.0-31.0); MEAN CORPUSCULAR HGB CONC 34.3 % (33.0-36.5); MEAN CORPUSCULAR VOLUME 90.7 FL (78-98); MEAN PLATELET VOLUME 7.4 FL (7.4-10.4); MONOCYTES # (AUTO) 0.6 X10'3 (0-0.9); MONOCYTES % (AUTO) 6.4 % (2-12); NEUTROPHILS # (AUTO) 7.7 X10'3 (1.8-7.7); NEUTROPHILS % (AUTO) 79.5 % (42-75); PLATELET COUNT 305 X10'3 (140-440); RED BLOOD COUNT 3.02 X10'6 (4.70-6.10); RED CELL DISTRIBUTION WIDTH 13.7 % (11.5-14.5); WHITE BLOOD COUNT 9.7 X10'3 (4.5-11.0)
[2018-05-20 07:16] LABS: ALANINE AMINOTRANSFERASE 29 U/L (12-78); ALBUMIN 1.8 G/DL (3.4-5.0); ALBUMIN/GLOBULIN RATIO 0.3 (1.1-1.5); ALKALINE PHOSPHATASE 83 IU/L (46-116); ANION GAP 10 (8-16); ASPARTATE AMINO TRANSFERASE 22 U/L (10-37); BILIRUBIN,TOTAL 0.4 MG/DL (0.1-1.0); BLOOD UREA NITROGEN 13 MG/DL (7-18); BUN/CREATININE RATIO 10.2 (5.4-32.0); CALCIUM 8.5 MG/DL (8.5-10.1); CHLORIDE 103 MMOL/L (99-107); CREATININE 1.28 MG/DL (0.60-1.10); GLUCOSE 107 MG/DL (70-104); POTASSIUM 3.4 MMOL/L (3.5-5.1); SODIUM 137 MMOL/L (135-145); TOTAL CARBON DIOXIDE 24.4 MMOL/L (24-32); TOTAL PROTEIN 7.4 G/DL (6.4-8.2); eGFR 58 ML/MIN
[2018-05-20 08:00] VITALS: BP 141/82
[2018-05-20] MEDS: K and/or MAG REPLACEMENT MC SCH (08:00)
[2018-05-20] MEDS: enoxaparin 40mg/0.4ml syringe SUBCUT SCH (08:00)
[2018-05-20] MEDS: potassium Cl 20 mEq SR tablet PO PRN ×3 (08:39→22:47)
[2018-05-20] MEDS: fluconazole 100mg tablet PO SCH (08:39)
[2018-05-20] MEDS: thiamine 100mg tablet PO SCH (08:40)
[2018-05-20] MEDS: propranolol 10mg tablet PO SCH ×3 (08:40→21:01)
[2018-05-20] MEDS: lactobacillus rhamnosus 10,000 MMU CELLS/CAPSULE PO SCH ×2 (08:40→21:01)
[2018-05-20] MEDS: nicotine 14mg patch - 24hr TD SCH (08:40)
[2018-05-20] MEDS: multivitamins, therapeutics tablet PO SCH (08:40)
[2018-05-20] MEDS: nystatin 15 GM powder TP SCH ×2 (08:40→21:01)
[2018-05-20 12:00] VITALS: BP 140/89
[2018-05-20] MEDS ORDERED: potassium Cl 40MEQ/NS 500ml 500 ML IV PRN ×2 (17:40)
[2018-05-20] MEDS ORDERED: magnesium 4gm in 100ml NS 100 ML IV PRN (17:40)
[2018-05-20] MEDS ORDERED: potassium Cl 20 mEq SR tablet PO PRN (17:40)
[2018-05-20] MEDS ORDERED: magnesium Cl slow-release 64mg tablet PO PRN (17:40)
[2018-05-20 18:00] VITALS: BP 156/89
[2018-05-20] MEDS: tamsulosin 0.4mg capsule PO SCH (21:01)
[2018-05-20] MEDS: gabapentin 400mg capsule PO SCH (21:01)
[2018-05-21] VITALS: BP 141/86
[2018-05-21 07:00] VITALS: BP 138/83
[2018-05-21 07:22] LABS: MAGNESIUM 1.8 MG/DL (1.5-2.4); POTASSIUM 3.9 MMOL/L (3.5-5.1)
[2018-05-21] MEDS: thiamine 100mg tablet PO SCH (08:46)
[2018-05-21] MEDS: lactobacillus rhamnosus 10,000 MMU CELLS/CAPSULE PO SCH ×2 (08:46→20:17)
[2018-05-21] MEDS: potassium Cl 20 mEq SR tablet PO PRN ×3 (08:46→20:24)
[2018-05-21] MEDS: propranolol 10mg tablet PO SCH ×3 (08:46→20:17)
[2018-05-21] MEDS: multivitamins, therapeutics tablet PO SCH (08:46)
[2018-05-21] MEDS: nicotine 14mg patch - 24hr TD SCH (08:47)
[2018-05-21] MEDS: enoxaparin 40mg/0.4ml syringe SUBCUT SCH (08:47)
[2018-05-21] MEDS: nystatin 15 GM powder TP SCH ×2 (08:53→20:17)
[2018-05-21] MEDS: K and/or MAG REPLACEMENT MC SCH (08:53)
[2018-05-21 13:50] VITALS: BP 142/92
[2018-05-21 19:00] VITALS: BP 150/97
[2018-05-21] MEDS: gabapentin 400mg capsule PO SCH (20:17)
[2018-05-21] MEDS: tamsulosin 0.4mg capsule PO SCH (20:17)
[2018-05-22] VITALS: BP 138/85
[2018-05-22 05:17] LABS: MAGNESIUM 1.9 MG/DL (1.5-2.4); POTASSIUM 4.1 MMOL/L (3.5-5.1)
[2018-05-22 07:24] VITALS: BP 128/77
[2018-05-22] MEDS: K and/or MAG REPLACEMENT MC SCH (08:00)
[2018-05-22] MEDS: propranolol 10mg tablet PO SCH ×3 (08:15→20:34)
[2018-05-22] MEDS: multivitamins, therapeutics tablet PO SCH (08:15)
[2018-05-22] MEDS: thiamine 100mg tablet PO SCH (08:15)
[2018-05-22] MEDS: lactobacillus rhamnosus 10,000 MMU CELLS/CAPSULE PO SCH ×2 (08:16→20:38)
[2018-05-22] MEDS: enoxaparin 40mg/0.4ml syringe SUBCUT SCH (08:18)
[2018-05-22] MEDS: nicotine 14mg patch - 24hr TD SCH (08:19)
[2018-05-22] MEDS: nystatin 15 GM powder TP SCH ×2 (08:20→20:00)
[2018-05-22 11:00] VITALS: BP 127/82
[2018-05-22 20:00] VITALS: BP 149/93
[2018-05-22] MEDS: tamsulosin 0.4mg capsule PO SCH (20:38)
[2018-05-22] MEDS: gabapentin 400mg capsule PO SCH (20:38)
[2018-05-23] VITALS: BP 149/90
[2018-05-23 05:27] LABS: MAGNESIUM 1.9 MG/DL (1.5-2.4); POTASSIUM 3.7 MMOL/L (3.5-5.1)
[2018-05-23 08:00] VITALS: BP 116/71
[2018-05-23] MEDS: K and/or MAG REPLACEMENT MC SCH (08:00)
[2018-05-23] MEDS: propranolol 10mg tablet PO SCH ×3 (09:05→20:26)
[2018-05-23] MEDS: multivitamins, therapeutics tablet PO SCH (09:05)
[2018-05-23] MEDS: lactobacillus rhamnosus 10,000 MMU CELLS/CAPSULE PO SCH ×2 (09:05→20:27)
[2018-05-23] MEDS: thiamine 100mg tablet PO SCH (09:05)
[2018-05-23] MEDS: nystatin 15 GM powder TP SCH ×2 (09:06→20:00)
[2018-05-23] MEDS: nicotine 14mg patch - 24hr TD SCH (09:06)
[2018-05-23] MEDS: enoxaparin 40mg/0.4ml syringe SUBCUT SCH (09:07)
[2018-05-23 12:00] VITALS: BP 129/88
[2018-05-23 20:00] VITALS: BP 148/91
[2018-05-23] MEDS: tamsulosin 0.4mg capsule PO SCH (20:27)
[2018-05-23] MEDS: gabapentin 400mg capsule PO SCH (20:27)
[2018-05-24] VITALS: BP 124/69
[2018-05-24 05:38] LABS: MAGNESIUM 1.7 MG/DL (1.5-2.4); POTASSIUM 3.9 MMOL/L (3.5-5.1)
[2018-05-24 07:52] VITALS: BP 116/78
[2018-05-24] MEDS: K and/or MAG REPLACEMENT MC SCH (08:00)
[2018-05-24] MEDS: thiamine 100mg tablet PO SCH (08:17)
[2018-05-24] MEDS: propranolol 10mg tablet PO SCH ×3 (08:17→19:19)
[2018-05-24] MEDS: lactobacillus rhamnosus 10,000 MMU CELLS/CAPSULE PO SCH ×2 (08:17→19:19)
[2018-05-24] MEDS: multivitamins, therapeutics tablet PO SCH (08:18)
[2018-05-24] MEDS: enoxaparin 40mg/0.4ml syringe SUBCUT SCH (08:18)
[2018-05-24] MEDS: nystatin 15 GM powder TP SCH ×2 (08:18→19:13)
[2018-05-24] MEDS: nicotine 14mg patch - 24hr TD SCH (08:18)
[2018-05-24 11:32] VITALS: BP 128/83
[2018-05-24] MEDS: gabapentin 400mg capsule PO SCH (19:19)
[2018-05-24] MEDS: tamsulosin 0.4mg capsule PO SCH (19:19)
[2018-05-24 20:00] VITALS: BP 139/86
[2018-05-25] VITALS: BP 109/62
[2018-05-25 07:00] VITALS: BP 124/83
[2018-05-25] MEDS: K and/or MAG REPLACEMENT MC SCH (08:00)
[2018-05-25] MEDS: nystatin 15 GM powder TP SCH ×2 (08:00→20:00)
[2018-05-25] MEDS: propranolol 10mg tablet PO SCH ×3 (08:27→20:03)
[2018-05-25] MEDS: thiamine 100mg tablet PO SCH (08:27)
[2018-05-25] MEDS: lactobacillus rhamnosus 10,000 MMU CELLS/CAPSULE PO SCH ×2 (08:27→20:03)
[2018-05-25] MEDS: multivitamins, therapeutics tablet PO SCH (08:27)
[2018-05-25] MEDS: nicotine 14mg patch - 24hr TD SCH (08:28)
[2018-05-25] MEDS: enoxaparin 40mg/0.4ml syringe SUBCUT SCH (08:28)
[2018-05-25 11:52] VITALS: BP 118/81
[2018-05-25 19:15] VITALS: BP 141/86
[2018-05-25] MEDS: fluconazole 100mg tablet PO SCH (20:03)
[2018-05-25] MEDS: tamsulosin 0.4mg capsule PO SCH (20:03)
[2018-05-25] MEDS: gabapentin 400mg capsule PO SCH (20:03)
[2018-05-26] VITALS: BP 136/82
[2018-05-26 06:05] LABS: BASOPHILS # (AUTO) 0.1 X10'3 (0-0.2); BASOPHILS % (AUTO) 0.8 % (0-1); EOSINOPHILS # (AUTO) 0.4 X10'3 (0-0.9); EOSINOPHILS % (AUTO) 2.6 % (0-6); HEMATOCRIT 28.9 % (42.0-52.0); LYMPHOCYTES # (AUTO) 1.9 X10'3 (1.1-4.8); MEAN CORPUSCULAR HEMOGLOBIN 31.2 PG (27.0-31.0); MEAN CORPUSCULAR HGB CONC 34.7 % (33.0-36.5); MEAN PLATELET VOLUME 7.5 FL (7.4-10.4); MONOCYTES # (AUTO) 0.6 X10'3 (0-0.9); MONOCYTES % (AUTO) 4.2 % (2-12); NEUTROPHILS # (AUTO) 10.5 X10'3 (1.8-7.7); NEUTROPHILS % (AUTO) 78.4 % (42-75); PLATELET COUNT 395 X10'3 (140-440); RED BLOOD COUNT 3.21 X10'6 (4.70-6.10); RED CELL DISTRIBUTION WIDTH 13.9 % (11.5-14.5); WHITE BLOOD COUNT 13.4 X10'3 (4.5-11.0)
[2018-05-26 06:32] LABS: ALANINE AMINOTRANSFERASE 35 U/L (12-78); ALBUMIN 2.3 G/DL (3.4-5.0); ALBUMIN/GLOBULIN RATIO 0.4 (1.1-1.5); ALKALINE PHOSPHATASE 61 IU/L (46-116); ANION GAP 12 (8-16); ASPARTATE AMINO TRANSFERASE 29 U/L (10-37); BILIRUBIN,TOTAL 0.5 MG/DL (0.1-1.0); BLOOD UREA NITROGEN 19 MG/DL (7-18); BUN/CREATININE RATIO 15.3 (5.4-32.0); CALCIUM 9.2 MG/DL (8.5-10.1); CHLORIDE 101 MMOL/L (99-107); CREATININE 1.24 MG/DL (0.60-1.10); GLUCOSE 107 MG/DL (70-104); MAGNESIUM 1.7 MG/DL (1.5-2.4); PHOSPHORUS 4.1 MG/DL (2.3-4.5); POTASSIUM 3.9 MMOL/L (3.5-5.1); SODIUM 136 MMOL/L (135-145); TOTAL CARBON DIOXIDE 23.3 MMOL/L (24-32); TOTAL PROTEIN 8.3 G/DL (6.4-8.2); eGFR 60 ML/MIN
[2018-05-26 07:00] VITALS: BP 139/83
[2018-05-26] MEDS: multivitamins, therapeutics tablet PO SCH (07:59)
[2018-05-26] MEDS: lactobacillus rhamnosus 10,000 MMU CELLS/CAPSULE PO SCH ×2 (07:59→20:16)
[2018-05-26] MEDS: thiamine 100mg tablet PO SCH (07:59)
[2018-05-26] MEDS: propranolol 10mg tablet PO SCH ×3 (07:59→20:16)
[2018-05-26] MEDS: nicotine 14mg patch - 24hr TD SCH (07:59)
[2018-05-26] MEDS: K and/or MAG REPLACEMENT MC SCH (08:00)
[2018-05-26] MEDS: nystatin 15 GM powder TP SCH ×2 (08:00→20:16)
[2018-05-26] MEDS: fluconazole 100mg tablet PO SCH (08:02)
[2018-05-26] MEDS: enoxaparin 40mg/0.4ml syringe SUBCUT SCH (08:10)
[2018-05-26 20:00] VITALS: BP 130/82
[2018-05-26 20:15] VITALS: BP 130/89
[2018-05-26] MEDS: gabapentin 400mg capsule PO SCH (20:16)
[2018-05-26] MEDS: tamsulosin 0.4mg capsule PO SCH (20:16)
[2018-05-27 00:41] VITALS: BP 124/82
[2018-05-27 06:49] VITALS: BP 118/74
[2018-05-27 07:49] LABS: BASOPHILS # (AUTO) 0.1 X10'3 (0-0.2); BASOPHILS % (AUTO) 0.6 % (0-1); EOSINOPHILS # (AUTO) 0.3 X10'3 (0-0.9); EOSINOPHILS % (AUTO) 2.5 % (0-6); HEMATOCRIT 29.7 % (42.0-52.0); HEMOGLOBIN 10.1 g/dl (14.0-17.9); LYMPHOCYTES # (AUTO) 1.9 X10'3 (1.1-4.8); LYMPHOCYTES % (AUTO) 16.1 % (21-51); MEAN CORPUSCULAR HEMOGLOBIN 30.6 PG (27.0-31.0); MEAN PLATELET VOLUME 7.4 FL (7.4-10.4); MONOCYTES # (AUTO) 0.8 X10'3 (0-0.9); MONOCYTES % (AUTO) 7.1 % (2-12); NEUTROPHILS # (AUTO) 8.5 X10'3 (1.8-7.7); NEUTROPHILS % (AUTO) 73.7 % (42-75); PLATELET COUNT 395 X10'3 (140-440); RED CELL DISTRIBUTION WIDTH 14.6 % (11.5-14.5); WHITE BLOOD COUNT 11.6 X10'3 (4.5-11.0)
[2018-05-27] MEDS: K and/or MAG REPLACEMENT MC SCH (08:00)
[2018-05-27 08:31] LABS: ALANINE AMINOTRANSFERASE 46 U/L (12-78); ALBUMIN 2.3 G/DL (3.4-5.0); ALBUMIN/GLOBULIN RATIO 0.4 (1.1-1.5); ALKALINE PHOSPHATASE 58 IU/L (46-116); ANION GAP 9 (8-16); ASPARTATE AMINO TRANSFERASE 28 U/L (10-37); BILIRUBIN,TOTAL 0.3 MG/DL (0.1-1.0); BLOOD UREA NITROGEN 21 MG/DL (7-18); BUN/CREATININE RATIO 15.6 (5.4-32.0); CALCIUM 9.4 MG/DL (8.5-10.1); CHLORIDE 104 MMOL/L (99-107); CREATININE 1.35 MG/DL (0.60-1.10); GLUCOSE 115 MG/DL (70-104); MAGNESIUM 1.9 MG/DL (1.5-2.4); PHOSPHORUS 4.4 MG/DL (2.3-4.5); POTASSIUM 4.2 MMOL/L (3.5-5.1); SODIUM 137 MMOL/L (135-145); TOTAL CARBON DIOXIDE 24.2 MMOL/L (24-32); TOTAL PROTEIN 8.4 G/DL (6.4-8.2); eGFR 54 ML/MIN
[2018-05-27] MEDS: nicotine 14mg patch - 24hr TD SCH (08:57)
[2018-05-27] MEDS: multivitamins, therapeutics tablet PO SCH (08:57)
[2018-05-27] MEDS: thiamine 100mg tablet PO SCH (08:57)
[2018-05-27] MEDS: lactobacillus rhamnosus 10,000 MMU CELLS/CAPSULE PO SCH ×2 (08:57→20:10)
[2018-05-27] MEDS: propranolol 10mg tablet PO SCH ×3 (08:57→20:10)
[2018-05-27] MEDS: enoxaparin 40mg/0.4ml syringe SUBCUT SCH (08:58)
[2018-05-27] MEDS: nystatin 15 GM powder TP SCH ×2 (09:06→20:09)
[2018-05-27 11:59] VITALS: BP 127/64
[2018-05-27 20:00] VITALS: BP 147/90
[2018-05-27] MEDS: gabapentin 400mg capsule PO SCH (20:09)
[2018-05-27] MEDS: tamsulosin 0.4mg capsule PO SCH (20:10)
[2018-05-28] VITALS: BP 125/78
[2018-05-28 06:50] LABS: BASOPHILS % (AUTO) 0.4 % (0-1); EOSINOPHILS # (AUTO) 0.4 X10'3 (0-0.9); EOSINOPHILS % (AUTO) 3.1 % (0-6); HEMATOCRIT 28.8 % (42.0-52.0); LYMPHOCYTES # (AUTO) 1.7 X10'3 (1.1-4.8); LYMPHOCYTES % (AUTO) 14.3 % (21-51); MEAN CORPUSCULAR HEMOGLOBIN 31.2 PG (27.0-31.0); MEAN CORPUSCULAR HGB CONC 34.8 % (33.0-36.5); MEAN CORPUSCULAR VOLUME 89.7 FL (78-98); MEAN PLATELET VOLUME 7.3 FL (7.4-10.4); MONOCYTES # (AUTO) 0.8 X10'3 (0-0.9); MONOCYTES % (AUTO) 6.5 % (2-12); NEUTROPHILS # (AUTO) 8.8 X10'3 (1.8-7.7); NEUTROPHILS % (AUTO) 75.7 % (42-75); PLATELET COUNT 365 X10'3 (140-440); RED BLOOD COUNT 3.21 X10'6 (4.70-6.10); RED CELL DISTRIBUTION WIDTH 14.4 % (11.5-14.5); WHITE BLOOD COUNT 11.7 X10'3 (4.5-11.0)
[2018-05-28 06:59] VITALS: BP 123/75
[2018-05-28] MEDS: K and/or MAG REPLACEMENT MC SCH (08:00)
[2018-05-28] MEDS: enoxaparin 40mg/0.4ml syringe SUBCUT SCH (08:00)
[2018-05-28] MEDS: propranolol 10mg tablet PO SCH ×3 (08:43→21:05)
[2018-05-28] MEDS: nicotine 14mg patch - 24hr TD SCH (08:43)
[2018-05-28] MEDS: thiamine 100mg tablet PO SCH (08:43)
[2018-05-28] MEDS: multivitamins, therapeutics tablet PO SCH (08:43)
[2018-05-28] MEDS: lactobacillus rhamnosus 10,000 MMU CELLS/CAPSULE PO SCH ×2 (08:43→21:05)
[2018-05-28] MEDS: nystatin 15 GM powder TP SCH ×2 (08:46→21:08)
[2018-05-28 11:14] VITALS: BP 132/84
[2018-05-28 18:00] VITALS: BP 146/90
[2018-05-28] MEDS: tamsulosin 0.4mg capsule PO SCH (21:05)
[2018-05-28] MEDS: gabapentin 400mg capsule PO SCH (21:05)
[2018-05-29 00:26] VITALS: BP 132/83
[2018-05-29 06:35] LABS: BASOPHILS # (AUTO) 0.1 X10'3 (0-0.2); BASOPHILS % (AUTO) 0.9 % (0-1); EOSINOPHILS # (AUTO) 0.3 X10'3 (0-0.9); EOSINOPHILS % (AUTO) 3.3 % (0-6); HEMATOCRIT 29.6 % (42.0-52.0); HEMOGLOBIN 10.4 g/dl (14.0-17.9); LYMPHOCYTES % (AUTO) 19.4 % (21-51); MEAN CORPUSCULAR HEMOGLOBIN 31.1 PG (27.0-31.0); MEAN CORPUSCULAR HGB CONC 35.2 % (33.0-36.5); MEAN CORPUSCULAR VOLUME 88.4 FL (78-98); MEAN PLATELET VOLUME 7.2 FL (7.4-10.4); MONOCYTES # (AUTO) 0.7 X10'3 (0-0.9); NEUTROPHILS # (AUTO) 7.1 X10'3 (1.8-7.7); NEUTROPHILS % (AUTO) 69.4 % (42-75); PLATELET COUNT 343 X10'3 (140-440); RED BLOOD COUNT 3.35 X10'6 (4.70-6.10); RED CELL DISTRIBUTION WIDTH 13.9 % (11.5-14.5); WHITE BLOOD COUNT 10.2 X10'3 (4.5-11.0)
[2018-05-29 07:00] VITALS: BP 129/86
[2018-05-29] MEDS: K and/or MAG REPLACEMENT MC SCH (08:00)
[2018-05-29] MEDS: enoxaparin 40mg/0.4ml syringe SUBCUT SCH (08:00)
[2018-05-29] MEDS: nicotine 14mg patch - 24hr TD SCH (08:38)
[2018-05-29] MEDS: propranolol 10mg tablet PO SCH ×3 (08:38→19:26)
[2018-05-29] MEDS: thiamine 100mg tablet PO SCH (08:38)
[2018-05-29] MEDS: nystatin 15 GM powder TP SCH ×2 (08:38→19:26)
[2018-05-29] MEDS: multivitamins, therapeutics tablet PO SCH (08:38)
[2018-05-29] MEDS: lactobacillus rhamnosus 10,000 MMU CELLS/CAPSULE PO SCH ×2 (08:38→19:26)
[2018-05-29 11:00] VITALS: BP 122/78
[2018-05-29] MEDS: gabapentin 400mg capsule PO SCH (19:26)
[2018-05-29] MEDS: tamsulosin 0.4mg capsule PO SCH (19:26)
[2018-05-29 20:00] VITALS: BP 133/85
[2018-05-30 07:00] VITALS: BP 119/81
[2018-05-30] MEDS: enoxaparin 40mg/0.4ml syringe SUBCUT SCH (08:00)
[2018-05-30] MEDS: K and/or MAG REPLACEMENT MC SCH (08:00)
[2018-05-30] MEDS: multivitamins, therapeutics tablet PO SCH (08:43)
[2018-05-30] MEDS: lactobacillus rhamnosus 10,000 MMU CELLS/CAPSULE PO SCH ×2 (08:43→19:28)
[2018-05-30] MEDS: propranolol 10mg tablet PO SCH ×3 (08:43→19:28)
[2018-05-30] MEDS: nystatin 15 GM powder TP SCH ×2 (08:44→19:28)
[2018-05-30] MEDS: thiamine 100mg tablet PO SCH (08:44)
[2018-05-30] MEDS: nicotine 14mg patch - 24hr TD SCH (08:44)
[2018-05-30 11:20] VITALS: BP 133/86
[2018-05-30] MEDS: tamsulosin 0.4mg capsule PO SCH (19:28)
[2018-05-30] MEDS: gabapentin 400mg capsule PO SCH (19:28)
[2018-05-30 20:00] VITALS: BP 145/96
[2018-05-31] VITALS: BP 130/81
[2018-05-31 07:00] VITALS: BP 126/82
[2018-05-31] MEDS: K and/or MAG REPLACEMENT MC SCH (08:00)
[2018-05-31] MEDS: enoxaparin 40mg/0.4ml syringe SUBCUT SCH (08:00)
[2018-05-31] MEDS: propranolol 10mg tablet PO SCH ×3 (08:51→19:01)
[2018-05-31] MEDS: nicotine 14mg patch - 24hr TD SCH (08:51)
[2018-05-31] MEDS: lactobacillus rhamnosus 10,000 MMU CELLS/CAPSULE PO SCH ×2 (08:51→19:02)
[2018-05-31] MEDS: multivitamins, therapeutics tablet PO SCH (08:51)
[2018-05-31] MEDS: thiamine 100mg tablet PO SCH (08:51)
[2018-05-31] MEDS: nystatin 15 GM powder TP SCH (08:51)
[2018-05-31 11:18] VITALS: BP 140/91
[2018-05-31] MEDS: LORazepam 0.5 MG tablet PO PRN (19:01)
[2018-05-31] MEDS: tamsulosin 0.4mg capsule PO SCH (19:02)
[2018-05-31] MEDS: gabapentin 400mg capsule PO SCH (19:02)
[2018-05-31 20:00] VITALS: BP 142/91
[2018-06-01] VITALS: BP 130/84
[2018-06-01 07:38] VITALS: BP 121/82
[2018-06-01] MEDS: enoxaparin 40mg/0.4ml syringe SUBCUT SCH (08:00)
[2018-06-01] MEDS: lactobacillus rhamnosus 10,000 MMU CELLS/CAPSULE PO SCH ×2 (08:01→21:14)
[2018-06-01] MEDS: thiamine 100mg tablet PO SCH (08:01)
[2018-06-01] MEDS: propranolol 10mg tablet PO SCH ×3 (08:01→21:14)
[2018-06-01] MEDS: multivitamins, therapeutics tablet PO SCH (08:01)
[2018-06-01] MEDS: nicotine 14mg patch - 24hr TD SCH (08:01)
[2018-06-01 11:27] VITALS: BP 139/82
[2018-06-01 19:30] VITALS: BP 135/79
[2018-06-01] MEDS: gabapentin 400mg capsule PO SCH (21:14)
[2018-06-01] MEDS: tamsulosin 0.4mg capsule PO SCH (21:14)
[2018-06-02] VITALS: BP 134/81
[2018-06-02 07:17] VITALS: BP 132/79
[2018-06-02] MEDS: lactobacillus rhamnosus 10,000 MMU CELLS/CAPSULE PO SCH ×2 (09:17→20:31)
[2018-06-02] MEDS: multivitamins, therapeutics tablet PO SCH (09:17)
[2018-06-02] MEDS: propranolol 10mg tablet PO SCH ×3 (09:17→20:30)
[2018-06-02] MEDS: thiamine 100mg tablet PO SCH (09:18)
[2018-06-02] MEDS: enoxaparin 40mg/0.4ml syringe SUBCUT SCH (09:19)
[2018-06-02] MEDS: nicotine 14mg patch - 24hr TD SCH (09:20)
[2018-06-02 11:22] VITALS: BP 131/87
[2018-06-02 12:30] VITALS: BP 141/97
[2018-06-02 18:00] VITALS: BP 138/84
[2018-06-02] MEDS: gabapentin 400mg capsule PO SCH (20:30)
[2018-06-02] MEDS: tamsulosin 0.4mg capsule PO SCH (20:31)
[2018-06-03] VITALS: BP 145/84
[2018-06-03 05:23] LABS: BASOPHILS # (AUTO) 0.1 X10'3 (0-0.2); EOSINOPHILS # (AUTO) 0.3 X10'3 (0-0.9); EOSINOPHILS % (AUTO) 3.8 % (0-6); HEMATOCRIT 32.9 % (42.0-52.0); HEMOGLOBIN 11.1 g/dl (14.0-17.9); LYMPHOCYTES # (AUTO) 2.3 X10'3 (1.1-4.8); LYMPHOCYTES % (AUTO) 27.6 % (21-51); MEAN CORPUSCULAR HEMOGLOBIN 29.8 PG (27.0-31.0); MEAN CORPUSCULAR HGB CONC 33.8 % (33.0-36.5); MEAN PLATELET VOLUME 7.5 FL (7.4-10.4); MONOCYTES # (AUTO) 0.5 X10'3 (0-0.9); MONOCYTES % (AUTO) 6.6 % (2-12); NEUTROPHILS # (AUTO) 5.1 X10'3 (1.8-7.7); PLATELET COUNT 270 X10'3 (140-440); RED BLOOD COUNT 3.74 X10'6 (4.70-6.10); RED CELL DISTRIBUTION WIDTH 14.1 % (11.5-14.5); WHITE BLOOD COUNT 8.4 X10'3 (4.5-11.0)
[2018-06-03 07:00] VITALS: BP 147/90
[2018-06-03] MEDS: propranolol 10mg tablet PO SCH ×3 (08:16→20:13)
[2018-06-03] MEDS: lactobacillus rhamnosus 10,000 MMU CELLS/CAPSULE PO SCH ×2 (08:16→20:13)
[2018-06-03] MEDS: enoxaparin 40mg/0.4ml syringe SUBCUT SCH (08:16)
[2018-06-03] MEDS: nicotine 14mg patch - 24hr TD SCH (08:16)
[2018-06-03] MEDS: thiamine 100mg tablet PO SCH (08:16)
[2018-06-03] MEDS: multivitamins, therapeutics tablet PO SCH (08:16)
[2018-06-03 11:00] VITALS: BP 123/79
[2018-06-03 18:00] VITALS: BP 148/98
[2018-06-03] MEDS: gabapentin 400mg capsule PO SCH (20:13)
[2018-06-03] MEDS: tamsulosin 0.4mg capsule PO SCH (20:13)
[2018-06-04] VITALS: BP 120/81
[2018-06-04 06:56] VITALS: BP 112/80
[2018-06-04] MEDS: enoxaparin 40mg/0.4ml syringe SUBCUT SCH (08:00)
[2018-06-04] MEDS: thiamine 100mg tablet PO SCH (08:38)
[2018-06-04] MEDS: nicotine 14mg patch - 24hr TD SCH (08:38)
[2018-06-04] MEDS: propranolol 10mg tablet PO SCH ×3 (08:38→20:21)
[2018-06-04] MEDS: lactobacillus rhamnosus 10,000 MMU CELLS/CAPSULE PO SCH ×2 (08:38→20:21)
[2018-06-04] MEDS: multivitamins, therapeutics tablet PO SCH (08:38)
[2018-06-04 11:57] VITALS: BP 134/90
[2018-06-04 18:00] VITALS: BP 155/94
[2018-06-04] MEDS: gabapentin 400mg capsule PO SCH (20:20)
[2018-06-04] MEDS: tamsulosin 0.4mg capsule PO SCH (20:21)
[2018-06-05] VITALS: BP 137/90
[2018-06-05 07:00] VITALS: BP 135/90
[2018-06-05] MEDS: nicotine 14mg patch - 24hr TD SCH (07:12)
[2018-06-05] MEDS: multivitamins, therapeutics tablet PO SCH (07:12)
[2018-06-05] MEDS: propranolol 10mg tablet PO SCH ×3 (07:12→20:45)
[2018-06-05] MEDS: thiamine 100mg tablet PO SCH (07:12)
[2018-06-05] MEDS: lactobacillus rhamnosus 10,000 MMU CELLS/CAPSULE PO SCH ×2 (07:12→20:44)
[2018-06-05] MEDS: enoxaparin 40mg/0.4ml syringe SUBCUT SCH (07:13)
[2018-06-05 11:00] VITALS: BP 151/92
[2018-06-05 18:00] VITALS: BP 131/83
[2018-06-05] MEDS: gabapentin 400mg capsule PO SCH (20:44)
[2018-06-05] MEDS: tamsulosin 0.4mg capsule PO SCH (20:45)
[2018-06-06] VITALS: BP 111/69
[2018-06-06 07:00] VITALS: BP 136/88
[2018-06-06] MEDS: enoxaparin 40mg/0.4ml syringe SUBCUT SCH (08:00)
[2018-06-06] MEDS: thiamine 100mg tablet PO SCH (09:14)
[2018-06-06] MEDS: propranolol 10mg tablet PO SCH ×3 (09:14→20:15)
[2018-06-06] MEDS: lactobacillus rhamnosus 10,000 MMU CELLS/CAPSULE PO SCH ×2 (09:14→20:15)
[2018-06-06] MEDS: nicotine 14mg patch - 24hr TD SCH (09:14)
[2018-06-06] MEDS: multivitamins, therapeutics tablet PO SCH (09:14)
[2018-06-06 11:00] VITALS: BP 136/84
[2018-06-06 20:00] VITALS: BP 150/105
[2018-06-06] MEDS: tamsulosin 0.4mg capsule PO SCH (20:15)
[2018-06-06] MEDS: gabapentin 400mg capsule PO SCH (20:15)
[2018-06-07] VITALS: BP 129/88
[2018-06-07 08:26] VITALS: BP 120/85
[2018-06-07] MEDS: multivitamins, therapeutics tablet PO SCH (08:43)
[2018-06-07] MEDS: lactobacillus rhamnosus 10,000 MMU CELLS/CAPSULE PO SCH ×2 (08:43→20:57)
[2018-06-07] MEDS: propranolol 10mg tablet PO SCH ×3 (08:43→20:58)
[2018-06-07] MEDS: nicotine 14mg patch - 24hr TD SCH (08:44)
[2018-06-07] MEDS: thiamine 100mg tablet PO SCH (08:44)
[2018-06-07] MEDS: enoxaparin 40mg/0.4ml syringe SUBCUT SCH (08:44)
[2018-06-07 12:33] VITALS: BP 133/89
[2018-06-07 20:00] VITALS: BP 144/87
[2018-06-07] MEDS: tamsulosin 0.4mg capsule PO SCH (20:58)
[2018-06-07] MEDS: gabapentin 400mg capsule PO SCH (20:58)
[2018-06-08] VITALS: BP 132/80
[2018-06-08 08:00] VITALS: BP 130/82
[2018-06-08] MEDS: lactobacillus rhamnosus 10,000 MMU CELLS/CAPSULE PO SCH ×2 (09:03→20:44)
[2018-06-08] MEDS: propranolol 10mg tablet PO SCH ×3 (09:03→20:44)
[2018-06-08] MEDS: thiamine 100mg tablet PO SCH (09:03)
[2018-06-08] MEDS: multivitamins, therapeutics tablet PO SCH (09:03)
[2018-06-08] MEDS: enoxaparin 40mg/0.4ml syringe SUBCUT SCH (09:04)
[2018-06-08] MEDS: nicotine 14mg patch - 24hr TD SCH (09:04)
[2018-06-08 12:08] VITALS: BP 123/88
[2018-06-08 20:00] VITALS: BP_SYST 102; BP_SYST 145; BP_DIAS 52; BP_DIAS 86
[2018-06-08] MEDS: gabapentin 400mg capsule PO SCH (20:44)
[2018-06-08] MEDS: tamsulosin 0.4mg capsule PO SCH (20:45)
[2018-06-09] VITALS: BP 127/75
[2018-06-09 07:04] VITALS: BP 134/87
[2018-06-09] MEDS: thiamine 100mg tablet PO SCH (08:54)
[2018-06-09] MEDS: lactobacillus rhamnosus 10,000 MMU CELLS/CAPSULE PO SCH ×2 (08:54→20:35)
[2018-06-09] MEDS: multivitamins, therapeutics tablet PO SCH (08:54)
[2018-06-09] MEDS: propranolol 10mg tablet PO SCH ×3 (08:54→20:35)
[2018-06-09] MEDS: enoxaparin 40mg/0.4ml syringe SUBCUT SCH (08:55)
[2018-06-09] MEDS: nicotine 14mg patch - 24hr TD SCH (08:55)
[2018-06-09 11:26] VITALS: BP 138/87
[2018-06-09 18:00] VITALS: BP 163/101
[2018-06-09] MEDS: gabapentin 400mg capsule PO SCH (20:34)
[2018-06-09] MEDS: tamsulosin 0.4mg capsule PO SCH (20:34)
[2018-06-10] VITALS: BP 133/87
[2018-06-10 07:00] VITALS: BP 127/78
[2018-06-10] MEDS: multivitamins, therapeutics tablet PO SCH (08:22)
[2018-06-10] MEDS: thiamine 100mg tablet PO SCH (08:22)
[2018-06-10] MEDS: lactobacillus rhamnosus 10,000 MMU CELLS/CAPSULE PO SCH ×2 (08:23→20:02)
[2018-06-10] MEDS: enoxaparin 40mg/0.4ml syringe SUBCUT SCH (08:23)
[2018-06-10] MEDS: propranolol 10mg tablet PO SCH ×3 (08:23→20:24)
[2018-06-10] MEDS: nicotine 14mg patch - 24hr TD SCH (08:25)
[2018-06-10 11:00] VITALS: BP 139/89
[2018-06-10 19:00] VITALS: BP 153/93
[2018-06-10] MEDS: gabapentin 400mg capsule PO SCH (20:24)
[2018-06-10] MEDS: tamsulosin 0.4mg capsule PO SCH (20:24)
[2018-06-11] VITALS: BP 124/75
[2018-06-11 07:57] VITALS: BP 123/75
[2018-06-11] MEDS: nicotine 14mg patch - 24hr TD SCH (08:31)
[2018-06-11] MEDS: lactobacillus rhamnosus 10,000 MMU CELLS/CAPSULE PO SCH ×2 (08:31→20:59)
[2018-06-11] MEDS: multivitamins, therapeutics tablet PO SCH (08:31)
[2018-06-11] MEDS: propranolol 10mg tablet PO SCH ×3 (08:31→20:59)
[2018-06-11] MEDS: enoxaparin 40mg/0.4ml syringe SUBCUT SCH (08:31)
[2018-06-11] MEDS: thiamine 100mg tablet PO SCH (08:32)
[2018-06-11 12:07] VITALS: BP 142/87
[2018-06-11 19:00] VITALS: BP 158/95
[2018-06-11] MEDS: gabapentin 400mg capsule PO SCH (20:59)
[2018-06-11] MEDS: tamsulosin 0.4mg capsule PO SCH (20:59)
[2018-06-12] VITALS: BP 147/95
[2018-06-12 08:11] VITALS: BP 124/82
[2018-06-12] MEDS: enoxaparin 40mg/0.4ml syringe SUBCUT SCH (08:15)
[2018-06-12] MEDS: multivitamins, therapeutics tablet PO SCH (08:15)
[2018-06-12] MEDS: lactobacillus rhamnosus 10,000 MMU CELLS/CAPSULE PO SCH ×2 (08:15→20:56)
[2018-06-12] MEDS: thiamine 100mg tablet PO SCH (08:15)
[2018-06-12] MEDS: nicotine 14mg patch - 24hr TD SCH (08:15)
[2018-06-12] MEDS: propranolol 10mg tablet PO SCH ×3 (08:16→20:56)
[2018-06-12 11:00] VITALS: BP 137/81
[2018-06-12 20:00] VITALS: BP 160/96
[2018-06-12] MEDS: tamsulosin 0.4mg capsule PO SCH (20:56)
[2018-06-12] MEDS: gabapentin 400mg capsule PO SCH (20:56)
[2018-06-12 23:00] VITALS: BP 145/94
[2018-06-13 07:40] VITALS: BP 128/78
[2018-06-13] MEDS: multivitamins, therapeutics tablet PO SCH (07:54)
[2018-06-13] MEDS: propranolol 10mg tablet PO SCH ×2 (07:54→12:58)
[2018-06-13] MEDS: lactobacillus rhamnosus 10,000 MMU CELLS/CAPSULE PO SCH (07:54)
[2018-06-13] MEDS: thiamine 100mg tablet PO SCH (07:54)
[2018-06-13] MEDS: nicotine 14mg patch - 24hr TD SCH (07:56)
[2018-06-13] MEDS: enoxaparin 40mg/0.4ml syringe SUBCUT SCH (08:00)
[2018-06-13 12:00] VITALS: BP 149/92
[2018-06-13] MEDS ORDERED: TAMS0.4C32 PO (12:07)
[2018-06-13] MEDS ORDERED: NICO-631 TD (12:07)
[2018-06-13] MEDS ORDERED: MULT-1179 PO (12:07)
[2018-06-13] MEDS ORDERED: PROP10TA10 PO (12:07)
[2018-06-13] MEDS ORDERED: GABA-534 PO (12:07)
[2018-06-13] MEDS ORDERED: THI100T PO (12:07)
== END 2018-06-13 14:15 | disposition home health service (06) | DRG 720 ==
LOC: ER 14:30 → ED HOLD 16:55 → EDBEDREQ 18:13 → PCU 3S 19:48 → CMPBEDREQ 19:48 → SUR 3N 04-02 23:28
PROVIDERS: ADMIT Family Medicine; ATTEND Family Medicine
DX: A41.9 Sepsis, unspecified organism (principal); I21.A1 Myocardial infarction type 2; B37.89 Other sites of candidiasis; G93.40 Encephalopathy, unspecified; N17.9 Acute kidney failure, unspecified; N18.3 Chronic kidney disease, stage 3 (moderate); M62.82 Rhabdomyolysis; E87.6 Hypokalemia; Y90.9 Presence of alcohol in blood, level not specified; N40.1 Benign prostatic hyperplasia with lower urinary tract symptoms; R33.8 Other retention of urine; E51.2 Wernicke's encephalopathy; I12.9 Hypertensive chronic kidney disease with stage 1 through stage 4 chronic kidney disease, or unspecified chronic kidney disease; N39.0 Urinary tract infection, site not specified; D63.8 Anemia in other chronic diseases classified elsewhere; F10.97 Alcohol use, unspecified with alcohol-induced persisting dementia; F17.210 Nicotine dependence, cigarettes, uncomplicated; Z71.6 Tobacco abuse counseling; Z79.899 Other long term (current) drug therapy
CPT/HCPCS: 36415; 70450; 71045; 73564; 80053; 80061; 80202; 80305; 80320; 81001; 82140; 82150; 82550; 82948; 83605; 83690; 83735; 83874; 84100; 84132; 84145; 84484; 85025; 85610; 85730; 87040; 87070; 87077; 87088; 93005; 93306; 94760; 96365; 96366; 97110; 97116; 97161; 97164; 97530; 97535; 99285; A4315; A4353; A4357; A4649; A6196; A6209; A6212; A6213; A6223; A6250; A6446; A6449; A9270; J0696; J1644; J1650; J2060; J2543; J3370; J3411; J3475; J3480; J3490; J7030; J7042; J7060; J7070

== ENCOUNTER 2018-06-16 18:53 | Emergency (ER) | payer MEDICAID ==
[~2018-06-16] VITALS: Ht 165.1 cm; Wt 73.0 kg
[~2018-06-16 18:53] MED LIST: GABA-534 PO; MULT-1179 PO; NICO-631 TD; NO HOME MEDS; PROP10TA10 PO; TAMS0.4C32 PO; THI100T PO
[2018-06-16 20:43] LABS: BASOPHILS % (AUTO) 0.3 % (0-1); EOSINOPHILS # (AUTO) 0.3 X10'3 (0-0.9); EOSINOPHILS % (AUTO) 2.5 % (0-6); HEMATOCRIT 37.8 % (42.0-52.0); HEMOGLOBIN 12.9 g/dl (14.0-17.9); LYMPHOCYTES # (AUTO) 1.9 X10'3 (1.1-4.8); LYMPHOCYTES % (AUTO) 14.1 % (21-51); MEAN CORPUSCULAR HEMOGLOBIN 30.3 PG (27.0-31.0); MEAN CORPUSCULAR HGB CONC 34.2 % (33.0-36.5); MEAN CORPUSCULAR VOLUME 88.5 FL (78-98); MONOCYTES # (AUTO) 0.6 X10'3 (0-0.9); MONOCYTES % (AUTO) 4.3 % (2-12); NEUTROPHILS # (AUTO) 10.4 X10'3 (1.8-7.7); NEUTROPHILS % (AUTO) 78.8 % (42-75); PLATELET COUNT 221 X10'3 (140-440); RED BLOOD COUNT 4.27 X10'6 (4.70-6.10); RED CELL DISTRIBUTION WIDTH 14.5 % (11.5-14.5); WHITE BLOOD COUNT 13.2 X10'3 (4.5-11.0)
[2018-06-16 21:07] LABS: ALANINE AMINOTRANSFERASE 26 U/L (12-78); ALBUMIN 3.2 G/DL (3.4-5.0); ALBUMIN/GLOBULIN RATIO 0.6 (1.1-1.5); ALKALINE PHOSPHATASE 50 IU/L (46-116); ANION GAP 11 (8-16); ASPARTATE AMINO TRANSFERASE 20 U/L (10-37); BILIRUBIN,TOTAL 0.9 MG/DL (0.1-1.0); BLOOD UREA NITROGEN 24 MG/DL (7-18); BUN/CREATININE RATIO 19.7 (5.4-32.0); CALCIUM 9.9 MG/DL (8.5-10.1); CHLORIDE 99 MMOL/L (99-107); CREATININE 1.22 MG/DL (0.60-1.10); ETHANOL < 0.010 GM/DL (0.0-0.010); GLUCOSE 136 MG/DL (70-104); POTASSIUM 3.7 MMOL/L (3.5-5.1); SODIUM 138 MMOL/L (135-145); TOTAL CARBON DIOXIDE 27.8 MMOL/L (24-32); TOTAL PROTEIN 8.5 G/DL (6.4-8.2); eGFR 61 ML/MIN
[2018-06-16] MEDS: LORazepam 1 MG tablet PO PRN (22:37)
[2018-06-16] MEDS ORDERED: thiamine 100mg/ml 2ml inj. IM ONE (23:30)
[2018-06-17] MEDS ORDERED: PROP10TA10 PO (07:03)
[2018-06-17] MEDS ORDERED: MULT-1179 PO (07:03)
[2018-06-17] MEDS ORDERED: GABA-534 PO (07:03)
[2018-06-17] MEDS ORDERED: THI100T PO (07:03)
[2018-06-17] MEDS ORDERED: FLO0.4C PO (07:03)
[2018-06-17 07:45] LABS: URINE AMPHETAMINE SCREEN NEGATIVE (Neg); URINE BARBITUATE SCREEN NEGATIVE (Neg); URINE BENZODIAZEPINES SCREEN NEGATIVE (Neg); URINE CANNABINOID SCREEN NEGATIVE (Neg); URINE COCAINE SCREEN NEGATIVE (Neg); URINE METHADONE SCREEN NEGATIVE (Neg); URINE OPIATE SCREEN NEGATIVE (Neg); URINE PHENCYCLIDINE SCREEN NEGATIVE (Neg)
[2018-06-17] MEDS: propranolol 10mg tablet PO SCH ×3 (08:25→20:19)
[2018-06-17] MEDS: multivitamins, therapeutics tablet PO SCH (08:26)
[2018-06-17] MEDS: thiamine 100mg tablet PO SCH (08:26)
[2018-06-17] MEDS: tamsulosin 0.4mg capsule PO SCH (20:19)
[2018-06-17] MEDS: gabapentin 400mg capsule PO SCH (20:19)
[2018-06-18] MEDS: thiamine 100mg tablet PO SCH (08:19)
[2018-06-18] MEDS: multivitamins, therapeutics tablet PO SCH (08:19)
[2018-06-18] MEDS: propranolol 10mg tablet PO SCH ×3 (08:19→21:01)
[2018-06-18] MEDS: tamsulosin 0.4mg capsule PO SCH (21:01)
[2018-06-18] MEDS: gabapentin 400mg capsule PO SCH (21:01)
[2018-06-19] MEDS: thiamine 100mg tablet PO SCH (10:36)
[2018-06-19] MEDS: propranolol 10mg tablet PO SCH ×3 (10:37→20:23)
[2018-06-19] MEDS: multivitamins, therapeutics tablet PO SCH (10:37)
[2018-06-19] MEDS: LORazepam 1 MG tablet PO PRN ×2 (13:37→20:23)
[2018-06-19] MEDS: tamsulosin 0.4mg capsule PO SCH (20:23)
[2018-06-19] MEDS: gabapentin 400mg capsule PO SCH (20:23)
[2018-06-20] MEDS: LORazepam 1 MG tablet PO PRN ×2 (02:51→20:23)
[2018-06-20] MEDS: multivitamins, therapeutics tablet PO SCH (08:37)
[2018-06-20] MEDS: propranolol 10mg tablet PO SCH ×3 (08:37→20:23)
[2018-06-20] MEDS: thiamine 100mg tablet PO SCH (08:37)
[2018-06-20] MEDS: gabapentin 400mg capsule PO SCH (20:22)
[2018-06-20] MEDS: tamsulosin 0.4mg capsule PO SCH (20:22)
[2018-06-21] MEDS: multivitamins, therapeutics tablet PO SCH (10:14)
[2018-06-21] MEDS: propranolol 10mg tablet PO SCH ×3 (10:15→20:13)
[2018-06-21] MEDS: thiamine 100mg tablet PO SCH (10:15)
[2018-06-21] MEDS: gabapentin 400mg capsule PO SCH (20:13)
[2018-06-21] MEDS: tamsulosin 0.4mg capsule PO SCH (20:13)
[2018-06-22] MEDS: thiamine 100mg tablet PO SCH (08:31)
[2018-06-22] MEDS: multivitamins, therapeutics tablet PO SCH (08:31)
[2018-06-22] MEDS: propranolol 10mg tablet PO SCH ×3 (08:31→20:04)
[2018-06-22] MEDS: LORazepam 1 MG tablet PO PRN (14:20)
[2018-06-22] MEDS: tamsulosin 0.4mg capsule PO SCH (20:04)
[2018-06-22] MEDS: gabapentin 400mg capsule PO SCH (20:04)
[2018-06-23] MEDS: thiamine 100mg tablet PO SCH (08:16)
[2018-06-23] MEDS: propranolol 10mg tablet PO SCH ×3 (08:16→19:53)
[2018-06-23] MEDS: multivitamins, therapeutics tablet PO SCH (08:16)
[2018-06-23] MEDS: tamsulosin 0.4mg capsule PO SCH (19:53)
[2018-06-23] MEDS: LORazepam 1 MG tablet PO PRN (19:53)
[2018-06-23] MEDS: gabapentin 400mg capsule PO SCH (19:53)
[2018-06-24] MEDS: multivitamins, therapeutics tablet PO SCH (08:09)
[2018-06-24] MEDS: propranolol 10mg tablet PO SCH ×3 (08:09→19:39)
[2018-06-24] MEDS: thiamine 100mg tablet PO SCH (08:09)
[2018-06-24] MEDS: LORazepam 1 MG tablet PO PRN (19:38)
[2018-06-24] MEDS: gabapentin 400mg capsule PO SCH (19:38)
[2018-06-24] MEDS: tamsulosin 0.4mg capsule PO SCH (19:39)
[2018-06-25] MEDS: propranolol 10mg tablet PO SCH ×3 (08:00→21:13)
[2018-06-25] MEDS: thiamine 100mg tablet PO SCH (08:00)
[2018-06-25] MEDS: multivitamins, therapeutics tablet PO SCH (08:01)
[2018-06-25] MEDS: tamsulosin 0.4mg capsule PO SCH (21:00)
[2018-06-25] MEDS: gabapentin 400mg capsule PO SCH (21:00)
[2018-06-25] MEDS: LORazepam 1 MG tablet PO PRN (21:17)
[2018-06-26] MEDS: multivitamins, therapeutics tablet PO SCH (08:15)
[2018-06-26] MEDS: propranolol 10mg tablet PO SCH ×3 (08:15→21:50)
[2018-06-26] MEDS: thiamine 100mg tablet PO SCH (08:15)
[2018-06-26] MEDS: gabapentin 400mg capsule PO SCH (21:50)
[2018-06-26] MEDS: tamsulosin 0.4mg capsule PO SCH (21:50)
[2018-06-27] MEDS: multivitamins, therapeutics tablet PO SCH (09:39)
[2018-06-27] MEDS: thiamine 100mg tablet PO SCH (09:39)
[2018-06-27] MEDS: propranolol 10mg tablet PO SCH ×3 (09:39→21:10)
[2018-06-27] MEDS: tamsulosin 0.4mg capsule PO SCH (21:10)
[2018-06-27] MEDS: gabapentin 400mg capsule PO SCH (21:10)
[2018-06-28] MEDS: propranolol 10mg tablet PO SCH ×3 (08:04→19:47)
[2018-06-28] MEDS: multivitamins, therapeutics tablet PO SCH (08:04)
[2018-06-28] MEDS: LORazepam 1 MG tablet PO PRN (08:04)
[2018-06-28] MEDS: thiamine 100mg tablet PO SCH (08:04)
[2018-06-28] MEDS: gabapentin 400mg capsule PO SCH (19:47)
[2018-06-28] MEDS: tamsulosin 0.4mg capsule PO SCH (19:47)
[2018-06-29] MEDS: multivitamins, therapeutics tablet PO SCH (08:36)
[2018-06-29] MEDS: thiamine 100mg tablet PO SCH (08:36)
[2018-06-29] MEDS: LORazepam 1 MG tablet PO PRN ×3 (08:36→20:13)
[2018-06-29] MEDS: propranolol 10mg tablet PO SCH ×3 (08:36→20:13)
[2018-06-29] MEDS: gabapentin 400mg capsule PO SCH (20:13)
[2018-06-29] MEDS: tamsulosin 0.4mg capsule PO SCH (20:13)
[2018-06-30] MEDS: propranolol 10mg tablet PO SCH ×3 (08:03→20:29)
[2018-06-30] MEDS: thiamine 100mg tablet PO SCH (08:03)
[2018-06-30] MEDS: multivitamins, therapeutics tablet PO SCH (08:03)
[2018-06-30] MEDS: tamsulosin 0.4mg capsule PO SCH (20:29)
[2018-06-30] MEDS: gabapentin 400mg capsule PO SCH (20:29)
[2018-07-01] MEDS: thiamine 100mg tablet PO SCH (08:24)
[2018-07-01] MEDS: propranolol 10mg tablet PO SCH ×3 (08:24→20:39)
[2018-07-01] MEDS: multivitamins, therapeutics tablet PO SCH (08:24)
[2018-07-01] MEDS: tamsulosin 0.4mg capsule PO SCH (20:39)
[2018-07-01] MEDS: gabapentin 400mg capsule PO SCH (20:39)
[2018-07-01] MEDS: LORazepam 1 MG tablet PO PRN (23:51)
[2018-07-02] MEDS: propranolol 10mg tablet PO SCH ×3 (09:00→21:28)
[2018-07-02] MEDS: multivitamins, therapeutics tablet PO SCH (09:00)
[2018-07-02] MEDS: thiamine 100mg tablet PO SCH (09:00)
[2018-07-02] MEDS: tamsulosin 0.4mg capsule PO SCH (21:28)
[2018-07-02] MEDS: gabapentin 400mg capsule PO SCH (21:28)
[2018-07-03] MEDS: multivitamins, therapeutics tablet PO SCH (08:28)
[2018-07-03] MEDS: thiamine 100mg tablet PO SCH (08:28)
[2018-07-03] MEDS: propranolol 10mg tablet PO SCH ×3 (08:29→20:29)
[2018-07-03] MEDS: tamsulosin 0.4mg capsule PO SCH (20:29)
[2018-07-03] MEDS: gabapentin 400mg capsule PO SCH (20:29)
[2018-07-04] MEDS: propranolol 10mg tablet PO SCH ×3 (08:03→20:25)
[2018-07-04] MEDS: multivitamins, therapeutics tablet PO SCH (08:03)
[2018-07-04] MEDS: thiamine 100mg tablet PO SCH (08:03)
[2018-07-04] MEDS: tamsulosin 0.4mg capsule PO SCH (20:25)
[2018-07-04] MEDS: gabapentin 400mg capsule PO SCH (20:25)
[2018-07-05] MEDS: multivitamins, therapeutics tablet PO SCH (09:41)
[2018-07-05] MEDS: propranolol 10mg tablet PO SCH ×3 (09:41→20:43)
[2018-07-05] MEDS: thiamine 100mg tablet PO SCH (09:41)
[2018-07-05] MEDS ORDERED: QUEtiapine 25mg tablet PO ONE (17:40)
[2018-07-05] MEDS: gabapentin 400mg capsule PO SCH (20:43)
[2018-07-05] MEDS: tamsulosin 0.4mg capsule PO SCH (20:44)
[2018-07-06] MEDS: propranolol 10mg tablet PO SCH ×3 (09:14→21:19)
[2018-07-06] MEDS: multivitamins, therapeutics tablet PO SCH (09:14)
[2018-07-06] MEDS: thiamine 100mg tablet PO SCH (09:15)
[2018-07-06] MEDS: tamsulosin 0.4mg capsule PO SCH (21:18)
[2018-07-06] MEDS: gabapentin 400mg capsule PO SCH (21:19)
[2018-07-07] MEDS: thiamine 100mg tablet PO SCH (08:36)
[2018-07-07] MEDS: multivitamins, therapeutics tablet PO SCH (08:36)
[2018-07-07] MEDS: propranolol 10mg tablet PO SCH (08:37)
[2018-07-07 09:40] VITALS: BP 149/103
== END 2018-07-07 09:00 ==
LOC: ER 18:53
DX: F79 Unspecified intellectual disabilities (principal); F03.90 Unspecified dementia, unspecified severity, without behavioral disturbance, psychotic disturbance, mood disturbance, and anxiety; F91.8 Other conduct disorders; I10 Essential (primary) hypertension; F10.97 Alcohol use, unspecified with alcohol-induced persisting dementia; E51.2 Wernicke's encephalopathy; Z79.899 Other long term (current) drug therapy; Y90.9 Presence of alcohol in blood, level not specified
CPT/HCPCS: 36415; 70450; 71045; 80053; 80305; 80320; 84484; 85025; 93005; 96372; 99285; J3411